=== PATIENT | female | born 2000 | race Caucasian/White ===

== ENCOUNTER 2021-08-04 12:20 | Emergency (ER) | payer OTHER, SELFPAY ==
[2021-08-04 12:53] VITALS: BP 143/92; PULSE 94; RESP 14; TEMP 37; O2SAT 99; BMI 33.6
--- NOTE | 2021-08-04 14:05 | HMH.EDUTC ---
[facility] [place] Clinical Impression: Dog bite of left hand Qualifiers: Encounter type: initial encounter Qualified Code(s): S61.452A - Open bite of left hand, initial encounter Disposition: Home, Self-Care Condition on Discharge: Good Instructions: DI for Dog Bite Additional Instructions: Keep the wounds clean and dry. Follow up with your regular doctor. Take the antibiotics as directed and apply the topical antibiotics as directed. Make sure you stay in contact with the health department regarding the health of the dog. Watch the wounds for signs of worsening infection, such as worsening redness, drainage, swelling, etc. GO TO THE ER FOR ANY WORSENING SYMPTOMS Prescriptions: Amoxicillin [Amoxicillin 875MG Tab] 875 mg PO Q12H #20 tab Transmission Status: Received by [facility] #[id number] Mupirocin [Bactroban 2% Ointment 22gm tube] 1 applicatio TP TID 7 Days #1 gm Transmission Status: Received by [id number] Referrals: Pritesh Mccollum [Primary Care Provider] - Time of Disposition: 14:11 Medical Decision Making - Medical Records Medical records reviewed: No: I reviewed the patient's medical records. - Jose L Inquiry Pt receiving controlled substance: No Vital Signs: 08/04/21 12:53 08/04/21 14:15 Temperature 98.6 F 98.6 F Temperature Source Oral Pulse Rate 94 H Pulse Rate [Left] 94 H Respiratory Rate 14 14 Blood Pressure 143/92 H Blood Pressure [Right Arm] 143/92 H Blood Pressure Mean [Right Arm] 109 02 Sat by Pulse Oximetry 99 [facility] [place] - General Stated complaint: dog bite on middle finger 0106 Time Seen by Provider: 08/04/21 12:55 Mode of Arrival: Ambulatory Source of Information: Patient Limitations: No Limitations Description of Symptoms (Recalled from Triage Doc. by RN): pt was bitten by a pug while at work. pt presents with a small scratch to her L middle digit on her hand. no puncture wounds present. 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 She has 2 superficial linear abrasions present on that finger. She denies any other injury. Her tetanus immunization is up to date. - Related Data Previous Rx's Medication Instructions Recorded Amoxicillin [Amoxicillin 875MG 875 mg PO Q12H #20 tab 08/04/21 Tab] Mupirocin [Bactroban 2% Ointment 1 applicatio TP TID 7 Days #1 gm 08/04/21 22gm tube] Allergies Allergy/AdvReac Type Severity Reaction Status Date / Time No Known Allergies Allergy Verified 08/04/21 12:57 - Worker's Comp Is this a Worker's Comp case?: Yes Is this an H Worker's Comp?: No Is this a [place] Worker's Comp?: No [facility] History - Hepatitis A Screen Drug use history?: No High risk sexual behaviors?: No History of sexually transmitted infection?: No Currently employed?: No Childcare worker?: No Do you have indoor plumbing?: Yes Do you have electricity?: Yes Attestation statement:: This patient has been screened for Hepatitis A risk factors. I have reviewed the patient's past medical history: Yes ROS Obtained: Yes All systems reviewed & no additional complaints - Constitutional Constitutional: Denies chills, Denies fever(s) - Integumentary/Breasts Skin/Breast: Reports as per HPI - Neurologic Neurologic: Denies tingling/numbness/burning sensations Physical Exam - General General appearance: alert, in no apparent distress - Head Head exam: atraumatic, normocephalic, normal inspection - Eye Eye exam: Present: normal appearance, PERRL, EOMI - ENT ENT exam: Present: normal exam, normal oropharynx, mucous membranes
[2021-08-04 14:15] VITALS: BP 143/92; PULSE 94; RESP 14; TEMP 37
== END 2021-08-04 14:21 | disposition home or self-care (01) ==
PROVIDERS: Emergency Provider Nurse Practitioner Family; PCP Family Medicine
DX: S61.452A Open bite of left hand, initial encounter (principal); W54.0XXA Bitten by dog, initial encounter
CPT/HCPCS: 99202; G0463

== ENCOUNTER 2021-08-18 19:27 | Emergency (ER) | payer OTHER, SELFPAY ==
[2021-08-18 19:29] VITALS: BP 165/97; PULSE 115; RESP 20; TEMP 36.4; O2SAT 100; BMI 33.6
--- NOTE | 2021-08-18 19:45 | XR_ITS ---
PROCEDURE INFORMATION: Exam: XR Right Hand Exam date and time: 08/18/2021 7:45 PM Age: 21 years old Clinical indication: Injury or trauma; Other: Embroindery machine needle; Blunt trauma (contusions or hematomas) and puncture; Right; Index finger; Patient HX: Embroidery machine needle broke in patient's finger. ; Additional info: Needle lodged. TECHNIQUE: Imaging protocol: XR Right hand. Views: 3 or more views. COMPARISON: No relevant prior studies available. FINDINGS: Bones/joints: 1 x 7 mm cylindrical pointed hypodensity along the radial and distal aspect of the distal phalanx of the 2nd ray. Additional tiny crescentic radiodensity just proximal. No acute fracture or dislocation. Soft tissues: Normal. IMPRESSION: Findings compatible with foreign body described above.
--- NOTE | 2021-08-18 20:07 | HMH.EDSKAF ---
ED Disposition Clinical Impression: Foreign body of finger Disposition: Home, Self-Care Condition on Discharge: Good Instructions: DI for Removal of Foreign Body From Skin Additional Instructions: keep clean and use advil/tyenol and use meds Prescriptions: cephALEXin [cephALEXin 500mg capsule*] 500 mg PO TID #30 cap Transmission Status: Pending to [facility]/pharmacy #[id number] Referrals: Pritesh Mccollum [Primary Care Provider] - - Critical Care Critical Care Time: No Attestation: On 08/18/21, the high probability of a clinically significant, sudden or life threatening deterioration of the following system(s) required my full and direct attention, intervention and personal management. The time I documented below is in addition to time spent performing reported procedures but includes the following listed in this critical care notation. Medical Decision Making - Medical Records Medical records reviewed: Yes: I reviewed the patient's medical records. - Jose L Inquiry Pt receiving controlled substance: No Vital Signs: 08/18/21 19:29 Temperature 97.6 F Temperature Source Oral Pulse Rate [Apical] 115 H Respiratory Rate 20 Blood Pressure [Right Arm] 165/97 H Blood Pressure Mean [Right Arm] 119 Blood Pressure Source [Right Arm] Automatic Cuff Blood Pressure Position [Right Arm] Sitting 02 Sat by Pulse Oximetry 100 Oxygen Delivery Method Room Air - Lab Data Lab results reviewed: Yes: I reviewed the patient's lab results. - Radiology Data #1 Image(s): Hand Image Reviewed: Yes I have reviewed radiologist's interpretation Preliminary Findings: Abnormal #2 Image(s): Hand Image Reviewed: Yes I have reviewed radiologist's interpretation Preliminary Findings: Abnormal (small matilda remains ) Medical Decision Narrative: removed fb and repeat xray showed small matilda Skin/Abscess/FB HPI - General Chief complaint: Extremity Injury, Upper Stated complaint: sewing machine needle in R index finger Time Seen by Provider: 08/18/21 20:00 Mode of Arrival: Ambulatory Source of Information: Patient, Medical Record Limitations: No Limitations Description of Symptoms (Recalled from ER Triage Doc. by RN): Patient states that roughly 30 minutes ago she was embroidering with her sewing machine when a needle penetrated her right index finger and broke off within her finger. Patient is able to feel the needle inside of her finger but cannot feel it outside of her finger to be able to remove it. - History of Present Illness HPI narrative: sewing needle broke off distal rt 2nd finger tip amna BULLARD complaint: foreign body Onset (ago): hour(s) Tetanus up to date: yes Location: R hand Severity: moderate Associated symptoms: denies other symptoms Treatments prior to arrival: none - Related Data Previous Rx's Medication Instructions Recorded Amoxicillin [Amoxicillin 875MG 875 mg PO Q12H #20 tab 08/04/21 Tab] Mupirocin [Bactroban 2% Ointment 1 applicatio TP TID 7 Days #1 gm 08/04/21 22gm tube] cephALEXin [cephALEXin 500mg 500 mg PO TID #30 cap 08/18/21 capsule*] Allergies Allergy/AdvReac Type Severity Reaction Status Date / Time No Known Allergies Allergy Verified 08/04/21 12:57 [facility] History - Hepatitis A Screen Drug use history?: No High risk sexual behaviors?: No History of sexually transmitted infection?: No Currently employed?: No Childcare worker?: No Do you have indoor plumbing?: Yes Do you have electricity?: Yes Attestation statement:: This patient has been screened for Hepatitis A risk factors. I have reviewed the patient's past medical history: Yes ROS Obtained: Yes All systems reviewed & no additional complaints - Constitutional Constitutional: Denies fever(s) - Eyes Eyes: Denies change in vision - ENT Ears, Nose, Mouth, and Throat: Denies sore throat - Cardiovascular Cardiovascular: Denies chest pain - Respiratory Respiratory: Denies shortness of br
--- NOTE | 2021-08-18 20:31 | XR_ITS ---
PROCEDURE INFORMATION: Exam: XR Right Hand Exam date and time: 08/18/2021 8:31 PM Age: 21 years old Clinical indication: Screening exam; Post fb removal; Additional info: Post foreign body removal TECHNIQUE: Imaging protocol: XR Right hand. Views: 1 or 2 views. COMPARISON: CR XR HAND RT MIN 3V 08/18/2021 7:44 PM FINDINGS: Bones/joints: No fracture or dislocation. Soft tissues: Residual tiny curvilinear radiodensity projecting within the soft tissues near the radial aspect the distal tuft of the 2nd ray. IMPRESSION: Residual tiny curvilinear radiodensity projecting within the soft tissues near the radial aspect the distal tuft of the 2nd ray.
[2021-08-18 21:02] VITALS: BP 165/97; PULSE 89; RESP 16; TEMP 36.4; O2SAT 98
== END 2021-08-18 21:11 | disposition home or self-care (01) ==
PROVIDERS: Emergency Provider Emergency Medicine; PCP Family Medicine
DX: S61.240A Puncture wound with foreign body of right index finger without damage to nail, initial encounter (principal); W26.8XXA Contact with other sharp object(s), not elsewhere classified, initial encounter; W45.8XXA Other foreign body or object entering through skin, initial encounter; Y92.019 Unspecified place in single-family (private) house as the place of occurrence of the external cause
CPT/HCPCS: 10120; 73120; 73130; 99282

== ENCOUNTER → 2022-01-03 10:57 | Outpatient (CLI) | payer BC, SELFPAY ==
[2022-01-03 12:15] LABS: Triiodothryronine (T3) Uptake 31 % (23.5-40.5)
[2022-01-03 12:16] LABS: Free Thyroxine Index 3.5 ug/dL (5.93-13.13); T4 (Thyroxine) 11.3 ug/dl (5.53-11.0)
[2022-01-03 12:29] LABS: Thyroid Stimulating Hormone 2.13 uIU/mL (0.465-4.68)
[2022-01-04 09:01] LABS: Estradiol <5.0 pg/mL (.); LH 10.6 mIU/mL (.); Progesterone 0.2 ng/mL (.); Prolactin 6.9 ng/mL (4.8-23.3); Testosterone,Total 12 ng/dL (13-71)
== END ==
PROVIDERS: PCP Nurse Practitioner Family; Visit Provider Obstetrics & Gynecology
DX: N91.2 Amenorrhea, unspecified (principal)
CPT/HCPCS: 36415; 82670; 83001; 83002; 84144; 84146; 84403; 84436; 84443; 84479

== ENCOUNTER → 2022-01-12 10:07 | Outpatient (CLI) | payer BC, SELFPAY ==
--- NOTE | 2022-01-12 10:08 | US_ITS ---
FINAL REPORT CLINICAL HISTORY: Amenorrhea FINDINGS: Transvaginal sonographic images of the pelvis were obtained. The uterus measures 6.6 x 2.7 x 2.3 cm. The endometrium measures 4 mm, which is within normal limits. No uterine mass is identified. The right ovary measures 3.3 cm in length and left ovary measures 2.4 cm in length. Normal blood flow seen to the ovaries. Small follicles are present. There is no evidence of free fluid. IMPRESSION: No acute abnormality identified. Reviewed, Interpreted and Dictated by Darron Schwab III, MD Transcribed by Alison Stoll Authenticated and . [facility]
== END ==
PROVIDERS: PCP Nurse Practitioner Family; Visit Provider Obstetrics & Gynecology
DX: N91.2 Amenorrhea, unspecified (principal)
CPT/HCPCS: 76830

== ENCOUNTER → 2023-06-16 08:21 | Outpatient (CLI) | payer BC, SELFPAY ==
[2023-06-17 08:57] LABS: Testosterone,Total 21 ng/dL (13-71)
[2023-07-01 16:31] LABS: Anti Mullerian Hormone (AMH) <0.015
== END ==
PROVIDERS: PCP Nurse Practitioner Family; Visit Provider Obstetrics & Gynecology
DX: E28.2 Polycystic ovarian syndrome (principal); N91.2 Amenorrhea, unspecified
CPT/HCPCS: 82397; 82626; 83498; 84403

== ENCOUNTER → 2023-07-13 15:17 | Outpatient (CLI) | payer BC, SELFPAY ==
[2023-07-15 10:05] LABS: FSH 19.9 mIU/mL (.); LH 11.6 mIU/mL (.)
[2023-08-15 08:21] LABS: Cells Analyzed 20; Cells Counted 20; Cells Karyotyped 2; GTG Band Resolution Achieved 500; Specimen Type BLOOD
[2023-08-15 08:22] LABS: PDF: SCANNED IMAGE
== END ==
PROVIDERS: PCP Nurse Practitioner Family; Visit Provider Obstetrics & Gynecology
DX: E28.2 Polycystic ovarian syndrome (principal); E28.39 Other primary ovarian failure
CPT/HCPCS: 83001; 83002

== ENCOUNTER 2024-05-21 15:19 | Outpatient (CLI) | payer BC, SELFPAY ==
[2024-05-21 15:47] VITALS: BMI 39.4
[2024-05-21 16:14] LABS: Basophils # 0.1 K/mm3 (0-0.2); Basophils % 0.7 % (0.1-2.0); Eosinophils # 0.1 K/mm3 (0.0-0.4); Hematocrit 39.6 % (37.0-47.0); Hemoglobin 13.4 g/dL (12.2-16.2); Lymphocytes # 1.9 K/mm3 (0.7-4.5); Lymphocytes % 24.8 % (10-50); Mean Corpuscular HGB Conc 33.9 g/dL (31.8-35.4); Mean Corpuscular Hemoglobin 30.3 pg (27.0-31.2); Mean Corpuscular Volume 89.2 fl (81-99); Mean Platelet Volume 9.1 fl (7.4-10.4); Monocytes # 0.4 K/mm3 (0.1-1.0); Monocytes % 4.6 % (1.7-9.3); Neutrophils # 5.4 K/mm3 (1.8-7.8); Platelet Count 276 K/mm3 (142-424); Red Blood Count 4.44 M/mm3 (4.20-5.40); Red Cell Distribution Width 12.7 % (11.5-17.5); White Blood Count 7.8 K/mm3 (4.8-10.8)
[2024-05-21 16:15] LABS: Albumin Level 4.7 g/dl (3.5-5.0); Chloride 102 mmol/L (98-107); Potassium 3.5 mmoL/L (3.5-5.1); Sodium 139 mmol/L (136-145)
[2024-05-21 16:17] LABS: Blood Urea Nitrogen 11 mg/dl (7-17); Creatinine Clearance Estimated 194 mL/min (50-200); Estimated Glomerular Filt Rate 87 ml/min (>60); GFR (African American) 106 ML/MIN (>60)
[2024-05-21 16:18] LABS: Alanine Aminotransferase 20 U/L (12-78); Albumin/Globulin Ratio 1.6 (1.1-1.8); Alkaline Phosphatase 58 U/L (38-126); Anion Gap 15.5 mEq/L (5-15); Aspartate Amino Transferase 24 U/L (14-36); Bilirubin,Total 0.7 mg/dl (0.2-1.3); Calcium 9.4 mg/dl (8.4-10.2); Carbon Dioxide 25 mmol/L (22.0-30.0); Globulin 2.9 g/dL (1.3-3.2); Glucose 80 mg/dl (74-100); Total Protein,Serum 7.6 g/dl (6.3-8.2)
[2024-05-21 16:54] LABS: HCG,Quantitative < 2 mIU/ml (0-5.42)
== END 2024-05-21 23:59 | disposition home or self-care (01) ==
LOC: PREOP 15:20
PROVIDERS: PCP Nurse Practitioner Family; Visit Provider Obstetrics & Gynecology
DX: N84.0 Polyp of corpus uteri (principal)
CPT/HCPCS: 80053; 84702; 85025

== ENCOUNTER 2024-05-28 09:21 | Day surgery (SDC) | payer BC, SELFPAY ==
[2024-05-21 15:43] VITALS: BMI 39.4
[2024-05-28] VITALS (9 sets, daily range): BP systolic 125–154; BP diastolic 72–102; PULSE 70–111; RESP 14–18; TEMP 36.6–37; O2SAT 96–100
--- NOTE | 2024-05-28 10:35 | EXP.ANES.CKL ---
[facility] Disclaimer: The information contained in this section may have been updated after the patient was seen, as this information can be updated by other users. Medical History History of primary ovarian failure PCOS (polycystic ovarian syndrome) Surgical History No history of previous surgery Family History Mother Cancer, Onset Age: 55 colon apr 12, 2022 Father Hypertension Diabetes Social History (Updated 05/28/24 @ 09:41 by Trang Edmond RN) Smoking Status: Never smoker alcohol intake: never substance use type: denies use current occupational status: employed Travel in the last 8 weeks: Inside the [place] [facility] Anesthesia Checklist Patient Identification Patient Identification: Arm Band Structural Data Admitted From: Home Planned Operative Procedure/s: Hysteroscopy, D&C, Polypectomy Consent for Planned Operative Procedure(s) Verified: Yes Verified Documents: Surgical Consent and History and Physical NPO Status Verified Time NPO: 00:00 Additional verifications Anesthesia Reactions: No Hx Blood Transfusions: No Blood Transfusion Reaction: No Airway Assessment Mallampati Score:: Class II C-Spine Mobility Assessed: Yes TMJ Mobility Assessed: Yes Dentition: Good Dentition Neurological Assessment Level of Consciousness: Awake, Alert and Appropriate Anesthesia Plan Anesthesia Risk discussed: Yes Anesthesia Plan: Verified ASA Class: II Anesthesia Type: General
--- NOTE | 2024-05-28 12:37 | P.PNANES_ITS ---
[facility] Anesthesia Record Part I Anesthesia Record I Intake, IV Amount: 700 Hydration: Adequate Estimated blood loss (mL): 10 Urine output (mL): 0 Blood Products used (#): none Blood Pressure: 135/97 SaO2: 98 Pulse Rate: 96 Airway Patency: Patent Respiratory Rate: 16 Temperature: 98.6 F Patient is:: Drowsy and Stable Stable to PACU at:: 12:35
--- NOTE | 2024-05-28 13:22 | EXP.OP.NOTE ---
Date of procedure: 05/28/24 Pre-op Diagnosis:: 1. Endometrial polyp 2. Primary ovarian failure 3. Infertility Post-op Diagnosis:: 1. Endometrial polyp 2. Primary ovarian failure 3. Infertility Procedure performed:: Hysteroscopy, dilation, and MyoSure polypectomy Surgeon:: Stacey Slaughter DO CLOTH MERCERIZER OPERATOR:: Ron Berkowitz Anesthesia: GETA Estimated blood loss (mL): 5 Clinical Note:: Mara Skaggs is a 24yo G0 who presented to me for secondary amenorrhea and was subsequently diagnosed with primary ovarian insufficiency. She has been evaluated by JAUN. She is currently seeing JAUN and starting the process to undergo IVF. On SIS and endometrial polyp was noted and the patient was sent back to me for polypectomy. Risk benefits alternatives were discussed with the patient in detail and she desired to proceed with polypectomy. Operative findings:: Findings: -EUA revealed an 6-week anteverted uterus with regular contour. Narrowed vaginal introidus. no significant prolapse or support defects noted. Very small nulliparous appearing cervix -Hysteroscopy revealed overall smooth endometrium with 1 small possible polyp noted on the anterior wall near the cornua. Operative note:: The patient was taken back to the OR where general anesthesia was obtained.? She was placed in the dorsal lithotomy position using candycane stirrups and sterilely prepped and draped in the usual fashion.?An in and out catheter was used to drain her bladder.? A timeout was performed.? A weighted speculum would not fit in the patients narrowed introidus and a right angle retractor and small dora were used to visualize this cervix, a single-tooth tenaculum was applied to the anterior lip of the cervix and the os was dilated to accomodate the myosure scope. Device set up, primed and zeroed. The hysterscope was inserted to the fundus. Images were obtained. Myosure was used to remove the small polyp described above. Total fluid deficit was approximately 150 mLs. Total MyoSure cutting time was less than 1 minute. Following removal of polyp the MyoSure hysteroscope was removed.? The single-tooth tenaculum was removed and hemostasis was noted at the tenaculum sites.? All instruments were removed from the vagina.? All counts were correct, per nursing.?This concluded the procedure, the patient was awakened from anesthesia, and transferred to the PACU in stable condition. Condition: stable Disposition: PACU Specimens:: Endometrial polyp Complications:: None
--- NOTE | 2024-05-29 08:38 | EXP.ANES.II ---
[facility] Anesthesia Record Part II Anesthesia Record Part II Discharge Time: 13:05 Destination: Surgical Day Care (OP Surgery) PACU nurse assessment reviewed?: Yes Patient Condition:: Good Anesthesia Complications:: None Swallowing reflex intact?: Yes Airway Patency: Patent Cyanosis?: No Blood Pressure: 136/93 SaO2: 98 Respiratory Rate: 18 Pulse Rate: 97 Temperature: 98.6 F Mental Status: Alert & Oriented Pain level:: 0 Nausea and/or vomitting:: None Intake, IV Amount: 0 Hydration: Adequate
[2024-05-29 08:39] VITALS: BP 136/93; PULSE 97; RESP 18; TEMP 37; O2SAT 98
--- NOTE | 2024-05-29 08:40 | EXP.ANES.II ---
[facility] Anesthesia Record Part II Anesthesia Record Part II Destination: Surgical Day Care (OP Surgery) PACU nurse assessment reviewed?: Yes Patient Condition:: Good Anesthesia Complications:: None Swallowing reflex intact?: Yes Airway Patency: Patent Cyanosis?: No Mental Status: Alert & Oriented Intake, IV Amount: 0 Hydration: Adequate
== END 2024-05-28 13:40 | disposition home or self-care (01) ==
PROVIDERS: PCP Nurse Practitioner Family; Visit Provider Obstetrics & Gynecology
PROC: 0UB98ZZ Excision of Uterus, Via Natural or Artificial Opening Endoscopic (ICD-10-PCS; CPT 58558; principal; 2024-05-28 11:00)
DX: N84.0 Polyp of corpus uteri (principal); E28.39 Other primary ovarian failure; N97.9 Female infertility, unspecified
CPT/HCPCS: 58558; J1100; J1885; J2250; J2405; J3010

== ENCOUNTER 2024-12-16 16:29 | Outpatient (CLI) | payer BC, SELFPAY ==
[2024-12-18 06:13] LABS: Neisseria gonorrhoeae, NAA Negative (Negative)
== END 2024-12-16 23:59 | disposition home or self-care (01) ==
LOC: LAB.DROPOF 16:30
PROVIDERS: PCP Obstetrics & Gynecology; Visit Provider Obstetrics & Gynecology
DX: Z3A.11 11 weeks gestation of pregnancy (principal)
CPT/HCPCS: 87491; 87591

== ENCOUNTER 2025-01-13 10:54 | Outpatient (CLI) | payer BC, SELFPAY ==
--- OUTSIDE RECORDS SUMMARY | 2025-01-13 11:05 | XMS_ITS | Clinical Summary ---
Author Organization [facility] Address [address], [place] [address] Phone Care Team Providers Care Sales Order Processor Name Role Phone Lisa Garner MD Primary Care Provider [phone] Allergies No known active allergies Medications medroxyPROGESTER one (PROVERA) 10 mg Oral Tablet Take 10 mg by mouth daily. Active estradioL (VIVELLE) 0.1 mg/24 hr TD Patch Semiweekly Place 1 Patch onto the skin two times a week. 09/17/2023 Active PNV,calcium 16-ffud-ujcmt acid 27 mg iron- 1 mg Oral Tablet Take 1 Tablet by mouth daily. 09/17/2023 Active promethazine-dex tromethorphan (PROMETHAZINE-DM ) 6.25-15 mg/5 mL Oral SyrupIndications :Viral URI Take 5 mL by mouth every 6 hours as needed. 473 mL 09/12/2024 Active Active Problems Problem Noted Date Diagnosed Date Folliculitis 06/08/2017 Immunizations Immunization Administration Dates Next Due DTaP 04/14/2003, 1,1999,08/29,1999 Hepatitis A, Adult 02/04/2018 Hepatitis B, Adult 03/07/2018 Hepatitis B, Ped/Adol 09/27/2018,04/09/2018 Hepatitis B, Unspecified Formulation 08/06/2000, 1999,1999 HiB, Unspecified Formulation 08/06/2000,08/29/19 00,1999 IPV 04/14/2003, 0,1999,06/24 Influenza, Split (Incl. Robert fied Surface Antigen) 05/18/2020,05/18/2020,05/06/2019 MMR 04/14/2003,08/06/2000 Meningococcal Conjugate 04/19/2010 Tdap 04/19/2010 Varicella 05/07/2000 Family History Medical History Relation Name Comments Heart Disease Father Cancer Maternal Grandmother Diabetes Maternal Grandmother Arthritis Mother Relation Name Status Comments Father Maternal Grandmother Mother Social History Tobacco Use Types Packs/Day Years Used Date Smoking Tobacco: Never Smokeless Tobacco: Never Tobacco Cessation:Counseling Given: Not Answered Alcohol Use Standard Drinks/Week Comments No 0 (1 standard drink = 0.6 oz pur e alcohol) PHQ-2 Answer Date Recorded PHQ-2 Total Score 0 09/12/2024 Sexually Active Control Partners Comments Never Comments No Sex and Gender Information Value Date Recorded Sex Assigned at Not on file Legal Sex Female 4:30 AM EDT Gender Identity Not on file Sexual Orientation Not on file 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 Not on file Not on file Not on isaiah e Obstetrics History Last Filed Vital Signs Vital Sign Reading Time Taken Comments Blood Pressure 118/84 09/12/2024 2:35 PM EST Pulse 111 09/12/2024 2:35 PM EST Temperature 36.6 C (97.9 F) 09/12/2024 2:35 PM EST Respiratory Rate - - Oxygen Saturation 98% 09/12/2024 2:35 PM EST Inhaled Oxygen Concentration - - Weight 115.2 kg (254 lb) 09/12/2024 2:35 PM EST Height 170.2 cm (5' 7 ) 09/12/2024 2:35 PM EST Body Mass Index 39.78 09/12/2024 2:35 PM EST Plan of Treatment Health Maintenance Due Date Last Done Comments HPV (1 - 3-dose series) 2014 Annual Wellness Exam 01/31/2019 01/31/2018 Cervical Cancer Screening 2020 Pap Smear 2020 DTaP/TDaP/Td (7 - Td or Tdap) 04/19/2020 04/19/2010, 04/14/2003, 11/05/2000, Additional history exists COVID-19 Vaccine ( season) 2024 Influenza Vaccine (Season Ended) 2025 05/18/2020, 05/18/2020, 05/06/2019, Additional history exists Hepatitis B Vaccine Completed 09/27/2018, 04/09/2018, 03/07/2018, Additional history exists Meningococcal B Vaccine Aged Out No l onger eligible based on patient's age to complete this topic Pneumococcal Vaccine 0-49 Aged Out No longer eligible based on patient's age to complete this topic Goals Goal Patient Goal Type Associated Problems Recent Progress Patient-Stated? Author Maintain a healthy diet, exercise regularly and maintain an ideal body weight General No Trang Burr, A Insurance [facility] PPO Care Teams Sales Order Processor Relationship Specialty Start Date End Date Lisa Garner MD [address] [place] [address] PCP - General Family Medicine 09/12/24
--- OUTSIDE RECORDS SUMMARY | 2025-01-13 11:05 | XMS_ITS | Clinical Summary ---
Author Organization [facility] Address [address] [place] [id number] Care Team Providers Care Pastry Wrapper Name Role Phone Pcp, No Primary Care Provider [phone] Source Comments This information has been disclosed to you from confidential records protectedfrom disclosure by state law. You shall make no further disclosure of thisinformation without the specific, written, and informed release of theindividual to whom it pertains, or as otherwise permitted by law. A generalauthorization for the release of medical or other information is not sufficientfor the purposes of therelease of HIV test results or diagnoses. [id number] Allergies No known active allergies Medications PNV,calcium 01-oteu-zzerp acid ( PLUS) 27 mg iron- 1 mg Tab tablet Take 1 tablet by mouth daily. 90 tablet 3 09/17/2023 Active estradioL (VIVELLE-DOT) 0.1 mg/[address] 1 patch onto the skin every Sunday and . 24 patch 3 09/17/2023 Active Family History Medical History Relation Comments Diabetes Father Hypertension Father Cancer Mother Lung, colon; Dec 2021, genetic testing neg Colon Cancer Mother Stroke Mother Cancer Paternal Grandmother lung Relation Status Comments Father Mother Paternal Grandmother Social History Tobacco Use Types Packs/Day Years Used Date Smoking Tobacco: Never Smokeless Tobacco: Never Alcohol Use Standard Drinks/Week Comments Never 0 (1 standard drink = 0.6 oz pur e alcohol) Comments No Sex and Gender Information Value Date Recorded Sex Assigned at Female 09/16/2023 6:58 PM EST Legal Sex Female 1:26 PM EST Gender Identity Female 09/16/2023 6:58 PM EST Sexual Orientation Straight 09/16/2023 6: 58 PM EST Last Filed Vital Signs Vital Sign Reading Time Taken Comments Blood Pressure 117/78 09/17/2023 9:51 AM EST Pulse - - Temperature - - Respiratory Rate - - Oxygen Saturation - - Inhaled Oxygen Concentration - - Weight 117.9 kg (260 lb) 09/17/2023 9:51 AM EST Height 170.2 cm (5' 7 ) 09/17/2023 9:51 AM EST Body Mass Index 40.72 09/17/2023 9:51 AM EST Plan of Treatment Health Maintenance Due Date Last Done Comments Abnormal Colonoscopy Follow Up 1999 Hepatitis C Screening (MyChart) 1999 Immunization: HPV (1 - 3-dose series) 2014 Alcohol Misuse Screening 2017 Depression Screening 2017 HIV Screening 2017 Cervical Cancer Screening/Pap Smear (MyChart) 2020 Immunization: DTaP/Tdap/Td (7 - Td or Tdap) 04/19/2020 04/19/2010, 04/14/2003, 11/05/2000, Additional history exists Immunization: COVID-19 ( season) 2024 Diabetes Screening 09/17/2024 09/17/2023 Immunization: Influenza (MyChart) (Season Ended) 2025 05/21/2023 Colorectal Cancer Screening (MyChart) 2039 Immunization: Meningococcal ACWY Aged Out 04/19/2010 No longer eligible based on patient's age to complete this topic Immunization: Hepatitis B Completed 2018, 04/09/2018, 03/07/2018, Additional history exists Immunization: Pneumococcal Aged Out N o longer eligible based on patient's age to complete this topic Procedures Procedure Name Priority Date/Time Associated Diagnosis Comments HEMOGLOBIN A1C Routine 09/17/2023 10:47 AM EST from Last 3 Months or Most Recently Relevant to Health Maintenance Results * Hemoglobin A1c (09/17/2023 10:47 AM EST) Hemoglobin A1C 5.4 4.8 - 5.6 % [facility] 1 Comment: Prediabetes: 5.7 - 6.4 Diabetes: >6.4 Glycemic control for adults with diabetes: <7.0 09/17/2023 10:4 7 AM EST 09/17/2023 Narrative [facility] - 09/18/2023 12:06 AM EST Performed at: 01 - [facility] [address] [id number] Printing Roller Handler: Mainor Newton PhD, Phone: [phone] us Irish Parsons MD LAB BLOOD ORDERABLES Final R esult [facility] 1 from Last 3 Months or Most Recently Relevant to Health Maintenance Insurance BL[employer] Care Teams Pastry Wrapper Relationship Specialty Start Date End Date Pcp, No No Address PCP - General 09/17/23
[2025-01-13 11:20] LABS: Basophils % 0.3 % (0.1-2.0); Eosinophils # 0.1 Kmm3 (0.0-0.4); Eosinophils % 0.8 % (0.1-12.0); Hematocrit 38.2 % (37.0-47.0); Hemoglobin 12.5 g/dL (12.2-16.2); Immature Granulocytes # 0.05 10^3uL; Immature Granulocytes % 0.5 %; Lymphocytes # 1.6 K/mm3 (0.7-4.5); Lymphocytes % 15.6 % (10-50); Mean Corpuscular HGB Conc 32.7 g/dL (31.8-35.4); Mean Corpuscular Volume 91.6 fl (81-99); Mean Platelet Volume 11.7 fl (7.4-10.4); Monocytes # 0.4 K/mm3 (0.1-1.0); Monocytes % 4.3 % (1.7-9.3); Neutrophils % 78.5 % (37.0-80.0); Nucleated Red Blood Cells # 0 10^3/uL; Nucleated Red Blood Cells % 0 %; Platelet Count 224 K/mm3 (142-424); Red Blood Count 4.17 M/mm3 (4.20-5.40); Red Cell Distribution Width 12.1 % (11.5-17.5); Red Cell Distribution Width-SD 40.2 fL; White Blood Count 10.2 K/mm3 (4.8-10.8)
[2025-01-13 11:50] LABS: Alanine Aminotransferase 14 U/L (12-78); Albumin Level 3.8 g/dl (3.5-5.0); Albumin/Globulin Ratio 1.5 (1.1-1.8); Alkaline Phosphatase 57 U/L (38-126); Aspartate Amino Transferase 20 U/L (14-36); Bilirubin,Total 0.6 mg/dl (0.2-1.3); Blood Urea Nitrogen 5 mg/dl (7-17); Calcium 9.9 mg/dl (8.4-10.2); Carbon Dioxide 24 mmol/L (22.0-30.0); Chloride 106 mmol/L (98-107); Estimated Glomerular Filt Rate 150 ml/min (>60); GFR (African American) 182 ML/MIN (>60); Globulin 2.5 g/dL (1.3-3.2); Glucose 94 mg/dl (74-100); Sodium 133 mmol/L (136-145); Total Protein,Serum 6.3 g/dl (6.3-8.2); Uric Acid 3.4 mg/dl (2.5-6.2)
[2025-01-13 12:30] LABS: HIV Combo NEGATIVE (Negative)
[2025-01-13 12:38] LABS: Hepatitis C Ab Qual. W/ RFX NEGATIVE (Negative)
[2025-01-14 09:43] LABS: Rubella Antibodies, IgG 1.37 index (Immune >0.99); Varicella Zoster IgG Reactive (Non Reactive)
[2025-01-14 09:58] LABS: RPR W/RFX Titers Nonreactive (Nonreactive)
[2025-01-14 10:11] LABS: Hepatitis B Surface Antigen Negative (Negative)
== END 2025-01-13 23:59 | disposition home or self-care (01) ==
LOC: LAB 10:55
PROVIDERS: PCP Family Medicine; Visit Provider Obstetrics & Gynecology
DX: O10.911 Unspecified pre-existing hypertension complicating pregnancy, first trimester (principal); Z3A.11 11 weeks gestation of pregnancy
CPT/HCPCS: 36415; 80053; 84550; 85025; 86592; 86762; 86787; 86803; 86850; 87340; 87389

== ENCOUNTER 2025-01-15 08:46 | Outpatient (CLI) | payer BC, SELFPAY ==
--- OUTSIDE RECORDS SUMMARY | 2025-01-15 08:50 | XMS_ITS | Clinical Summary ---
Author Organization [facility] Address [address] [place] [id number] Care Team Providers Care Skiver Sock Linings Name Role Phone Pcp, No Primary Care [...] therelease of HIV test results or diagnoses. [id number] Allergies No known active allergies Medications PNV,calcium 49-eeei-ilfsv acid ( PLUS) 27 mg iron- 1 [...] AM EST Performed at: 01 - [facility] [address] [id number] Stagecraft Teacher: Mainor Newton PhD, Phone: [phone] us Irish Parsons MD LAB BLOOD ORDERABLES Final R esult [facility] 1 from Last 3 Months or Most Recently Relevant to Health Maintenance Insurance [employer] Care Teams Skiver Sock Linings Relationship Specialty Start Date End Date Pcp, No No Address PCP - General 09/17/23
--- OUTSIDE RECORDS SUMMARY | 2025-01-15 08:50 | XMS_ITS | Clinical Summary ---
Author Organization [facility] Address [address] [facility] [place] [address] Phone Care Team Providers Care Transition Advisor Name Role Phone Lisa Garner MD Primary Care Provider +1- [phone] Allergies No known active allergies Medications medroxyPROGESTER one (PROVERA) 10 mg Oral Tablet Take 10 mg by mouth daily. Active estradioL (VIVELLE) 0.1 mg/24 [address] TD Patch Semiweekly Place 1 Patch onto the skin two times a week. 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
[2025-01-15 15:58] LABS: Total Volume,Urine 850 mL (600-1600)
[2025-01-15 16:08] LABS: Total Protein 24 Hour,Urine 43 mg/24 hr (40-90); Total Protein,Urine Random < 5.0 mg/dL (0.0-12.0)
== END 2025-01-15 23:59 | disposition home or self-care (01) ==
LOC: LAB 08:47
PROVIDERS: PCP Family Medicine; Visit Provider Obstetrics & Gynecology
DX: O13.9 Gestational [pregnancy-induced] hypertension without significant proteinuria, unspecified trimester (principal); Z3A.00 Weeks of gestation of pregnancy not specified
CPT/HCPCS: 84155

== ENCOUNTER 2025-04-08 10:37 | Outpatient (CLI) | payer BC, SELFPAY ==
--- OUTSIDE RECORDS SUMMARY | 2025-02-09 13:03 | XMS_ITS | Encounter Summary ---
Author Organization [facility] Address [address] [place] [id number] Care Team Providers Care Office Rn Name Role Phone Lisa Garner MD Primary Care Provider [phone]- [phone] Reason for Referral * Diagnostic Imaging (Routine) - Closed Specialty Diagnoses / Procedures Referred By Pablo avila Referred To Contact Radiology Diagnoses Conceived by in vitro fertilization HTN in , chronic Obesity in , antepartum , unspecified gestational age Procedures [facility] Xiomy Slaughter DO [address] [place] [address] [place] [address] Phone: tel: fax: [facility] DI[facility] [address] [place] [address] Phone: tel: Referral ID Status Reason Start Date Expiration Date Visits Re quested Visits Authorized [id number] Closed 01/14/2025 04/15/2026 1 1 Reason for Visit * Diagnostic Imaging (Routine) - Closed Specialty Diagnoses / Procedures Referred By Pablo avila Referred To Contact Radiology Diagnoses Conceived by in vitro fertilization HTN in , chronic Obesity in , antepartum , unspecified gestational age Procedures [facility] [place] Xiomy Slaughter DO [address] [place] [address] [place] [id number] Phone: tel: fax: [facility] [address] [place] [address] Phone: tel: Referral ID Status Reason Start Date Expiration Date Visits Re quested Visits Authorized [id number] Closed 01/14/2025 04/15/2026 1 1 Encounter Details Date Type Department Care Team (Latest Contact Info) Description 02/09/2025 1:03 PM EDT - 02/09/2025 11:59 PM EDT Hospital Encounter [facility] [address] [place] [address] Xiomy Slaughter, [address] [facility] [address] [place] [address] Conceived by in vitro fertilization; HTN in , chronic; Obesity in , antepartum; , unspecified gestational age Discharge Disposition: Home or Self Care Social History Tobacco Use Types Packs/Day Years Used Date Smoking Tobacco: Never Smokeless Tobacco: Never Alcohol Use Standard Drinks/Week Comments Never 0 (1 standard drink = 0.6 oz pur e alcohol) Estimated Date of Delivery Comme nts Yes 06/29/2025 Date entered shilpi or to episode creation Sex and Gender Information Value Date Recorded Sex Assigned at Not on file Legal Sex Female 10:49 AM EDT Gender Identity Not on file Sexual Orientation Not on file documented as of this encounter Medications at Time of Discharge aspirin 81 MG EC tablet Take 1 tablet by mouth 2 (Two) Times a Day. MV & Min w/FA-DHA ( GUMMIES PO) Take 2 tablets by mouth Daily. documented as of this encounter Plan of Treatment Upcoming Encounters Date Type Department Care Team (Late st Contact Info) Description 04/20/2025 10:00 AM EDT Appointment [facility] DELIVERY PROCEDURES [address] [place] [address] documented as of this encounter Procedures Procedure Name Priority Date/Time Associated Diagnosis Comments [facility] Routine 02/09/2025 1:52 PM EDT Conceived by in vitro fertilization HTN in , chronic Obesity in , antepartum , unspecified gestational age documented in this encounter Results * [facility] (02/09/2025 1:52 PM EDT) Anatomical Region Laterality Modality Ultrasound 02/09/2025 1:30 PM EDT Narrative 02/09/2025 3:20 PM EDT PAT NAME: JES WALL MED REC#: [id number] DA: [id number] PAT GEND: F PAT TYPE: O EXAM PALLAVI: [id number] REF PHYS XIOMY SLAUGHTER Comparison Studies There are no relevant prior studies to which this study is being compared Patient Status Outpatient Indication ======== IVF (donor egg). CHTN. Morbid obesity BMI 42. Maternal Assessment Height 167 cm Height (ft) 5 ft Height (in) 6 in Weight 118 kg Weight (lb) 260 lb BMI 42.29 kg/m Method ======= Transabdominal ultrasound examination. View: Suboptimal view: limited by maternal body habitus ========= Jacome . Number of fetuses: 1 Dating ====== Method of dating: based on stated JACKIE GA by prior assessment 20 w + 0 d JACKIE by prior assessment: 06/29/2025 Ultrasound examination on: 02/09/2025 GA by U/S based upon: AC, BPD, Femur, HC GA by U/S 20 w + 2 d JACKIE by U/S: 06/27/2025 Assigned: based on stated JACKIE, selected on 02/09/2025 Assigned GA 20 w + 0 d Assigned JACKIE: 06/29/2025 length 280 d Biometry Standard BPD 48.3 mm 20w 4d 75% Hadlock OFD 62.9 mm 21w 3d 92% Dylon HC 180.7 mm 20w 3d 65% Hadlock Cerebellum tr 22.5 mm 21w 0d 95% Hill Nuchal fold 3.9 mm AC 140.6 mm 19w 3d 26% Hadlock Femur 33.4 mm 20w 3d 59% Hadlock Humerus 30.6 mm 20w 1d 60% Dylon HC / AC 1.29 99% Hadlock EFW 326 g 19w 6d 45% Hadlock EFW (lb) 0 lb EFW (oz) 11 oz EFW by: Hadlock ([id number]) Extended Tibia 28.1 mm 20w 1d 64% Dylon Fibula 28.4 mm 20w 1d 53% Dylon Radius 25.1 mm 19w 3d 40% Dylon Ulna 27.3 mm 20w 0d 39% Dylon Cav. septi pel. tr 4.0 mm Pmp 6.8 mm CM 2.8 mm 2% Nicolaides Nasal bone 6.2 mm Head / Face / Neck Cephalic index 0.77 28% Nicolaides Extremities / Bony Struc FL / BPD 0.69 42% Hadlock FL / HC 0.18 26% Hadlock FL / AC 0.24 94% Hadlock Other Structures FHR 143 bpm General Evaluation Cardiac activity present. FHR 143 bpm. movements present. Presentation cephalic. Placenta Placental site: posterior. Umbilical cord Cord vessels: 2 vessel cord, absence of the right umbilical artery. Insertion site: Not visible. Amniotic fluid Amount of AF: normal. MVP 5.7 cm. Anatomy Cranium: Appears normal Midline falx: Appears normal Cavum septi pellucidi: Appears normal Cerebellum: Appears normal Cisterna magna: Appears normal Head / Neck Rt lateral ventricle: Appears normal Lt lateral ventricle: Appears normal Rt choroid plexus: Appears normal Lt choroid plexus: Appears normal Vermis: Appears normal Neck: Appears normal Nuchal fold: Appears normal Lips: Appear normal Profile: Appears normal Nose: Appears normal Face Nose: Nasal bone present Palate: Appears normal Orbits: Appears normal Lens: Normal 4-chamber view: Appears normal RVOT view: suboptimal LVOT view: suboptimal Heart / Thorax 4-chamber view: outflow tracts cross by color flow Aortic arch view: suboptimal Ductal arch view: suboptimal SVC: suboptimal IVC: suboptimal 3-vessel view: suboptimal 1-xybvlc-bsdjgsx view: suboptimal Rt lung: Appears normal Lt lung: normal Diaphragm: Appears normal Diaphragm: Intact Cord insertion: Appears normal Stomach: Appears normal Bladder: Appears normal Abdomen Rt kidney: normal Lt kidney: normal Liver: normal Small bowel: normal Large bowel: normal Cervical spine: Appears normal Thoracic spine: Appears normal Lumbar spine: Appears normal Sacral spine: Appears normal Arms: Appears normal Legs: Appears normal Rt upper arm: Appears normal Rt forearm: Appears normal Rt hand: Appears normal Lt upper arm: Appears normal Lt forearm: Appears normal Lt hand: Appears normal Rt upper leg: Appears normal Rt lower leg: Appears normal Rt foot: suboptimal Lt upper leg: Appears normal Lt lower leg: Appears normal Lt foot: ABNORMAL Lt foot: clubbing Gender: female Wants to know gender: yes Maternal Structures Uterus / Cervix Cervix: Visualized Approach: Transabdominal Cervical length 42.8 mm Ovaries / Tubes / Adnexa Rt ovary: Visualized Lt ovary: Visualized Impression Jes presents for a anatomic survey. On today's exam, SIUP is noted in cephalic presentation with biometry measuring consistent with dates. There is a normal amount of amniotic fluid. Placenta is posterior. Cervical length appears adequate. Left club foot is suspected. Single umbilical artery/2VC is noted. Otherwise, limited but normal appearing anatomy is visualized. Additional heart views are needed to complete the anatomic survey. Recommendation Follow-up scheduled in 4wks for a echo. Coding ======= Description: 81669-27 Detailed Petroleum Engineering Professor: Vandana Costa RDMS Physician: Zoila Gandhi MD Electronically signed by: Zoila Gandhi MD at: 15:20 Procedure Note Zoila Gandhi MD - 02/09/2025 PAT NAME: JES WALL MED REC#: [id number] DA: 2000 PAT GEND: F PAT TYPE: O EXAM PALLAVI: [id number] REF PHYS XIOMY SLAUGHTER Comparison Studies There are no relevant prior studies to which this study is beingcompared Patient Status Outpatient Indication ======== IVF (donor egg). CHTN. Morbid obesity BMI 42. Maternal Assessment Cloeoi086 cm Height (ft)5 ft Height (in)6 in [id number] kg Weight (lb)260 lb BMI42.29 kg/m Method ======= Transabdominal ultrasound examination. View: Suboptimal view: limited bymaternal body habitus ========= Jacome . Number of fetuses: 1 Dating ====== Method of dating:based on stated JACKIE GA by prior [id number] w + 0 d JACKIE by prior assessment:06/29/2025 Ultrasound examination on:02/09/2025 GA by U/S based upon:AC, BPD, Femur, HC GA by U/S20 w + 2 d JACKIE by U/S:06/27/2025 Assigned:based on stated JACKIE, selected on 02/09/2025 Assigned GA20 w + 0 d Assigned JACKIE:06/29/2025 [id number] d Biometry Standard BPD48.3 mm 20w 4d 75% Hadlock OFD62.9 mm 21w 3d 92% Dylon HC180.7 mm 20w 3d 65% Hadlock Cerebellum tr22.5 mm 21w 0d 95% Hill Nuchal fold3.9 mm AC140.6 mm 19w 3d 26% Hadlock Femur33.4 mm 20w 3d 59% Hadlock Eajccyy86.6 mm 20w 1d 60% Dylon HC / AC1.29 99% Hadlock EEM243 g 19w 6d 45% Hadlock EFW (lb)0 lb EFW (oz)11 oz EFW by:Hadlock (AFS-AH-TF-FL) Extended Tibia28.1 mm 20w 1d 64% Dylon Boklnr11.4 mm 20w 1d 53% Dylon Knwrtz31.1 mm 19w 3d 40% Dylon Ulna27.3 mm 20w 0d 39% Dylon Cav. septi pel. tr4.0 mm Vp6.8 mm CM2.8 mm 2% Nicolaides Nasal bone6.2 mm Head / Face / Neck Cephalic index0.77 28% Nicolaides Extremities / Bony Struc FL / BPD0.69 42% Hadlock FL / HC0.18 26% Hadlock FL / AC0.24 94% Hadlock Other Structures [id number] bpm General Evaluation Cardiac activity present. FHR 143 bpm. movements present. Presentation cephalic. Placenta Placental site: posterior. Umbilical cord Cord vessels: 2 vessel cord, absence of the right umbilicalartery. Insertion site: Not visible. Amniotic fluid Amount of AF: normal. MVP 5.7 cm. Anatomy Cranium:Appears normal Midline falx:Appears normal Cavum septi pellucidi:Appears normal Cerebellum:Appears normal Cisterna magna:Appears normal Head / Neck Rt lateral ventricle:Appears normal Lt lateral ventricle:Appears normal Rt choroid plexus:Appears normal Lt choroid plexus:Appears normal Vermis:Appears normal Neck:Appears normal Nuchal fold:Appears normal Lips:Appear normal Profile:Appears normal Nose:Appears normal Face Nose:Nasal bone present Palate:Appears normal Orbits:Appears normal Lens:Normal 4-chamber view:Appears normal RVOT view:suboptimal LVOT view:suboptimal Heart / Thorax 4-chamber view:outflow tracts cross by color flow Aortic arch view:suboptimal Ductal arch view:suboptimal SVC:suboptimal IVC:suboptimal 3-vessel view:suboptimal 1-znnwjb-rugyaoj view:suboptimal Rt lung:Appears normal Lt lung:normal Diaphragm:Appears normal Diaphragm:Intact Cord insertion:Appears normal Stomach:Appears normal Bladder:Appears normal Abdomen Rt kidney:normal Lt kidney:normal Liver:normal Small bowel:normal Large bowel:normal Cervical spine:Appears normal Thoracic spine:Appears normal Lumbar spine:Appears normal Sacral spine:Appears normal Arms:Appears normal Legs:Appears normal Rt upper arm:Appears normal Rt forearm:Appears normal Rt hand:Appears normal Lt upper arm:Appears normal Lt forearm:Appears normal Lt hand:Appears normal Rt upper leg:Appears normal Rt lower leg:Appears normal Rt foot:suboptimal Lt upper leg:Appears normal Lt lower leg:Appears normal Lt foot:ABNORMAL Lt foot:clubbing Gender:female Wants to know gender:yes Maternal Structures Uterus / Cervix Cervix:Visualized Approach:Transabdominal Cervical hvknij49.8 mm Ovaries / Tubes / Adnexa Rt ovary:Visualized Lt ovary:Visualized Impression Jes presents for a anatomic survey. On today's exam, SIUP is noted in cephalic presentation with biometrymeasuring consistent with dates. There is a normal amount of amnioticfluid. Placenta is posterior. Cervical length appears adequate. Left club foot is suspected. Single umbilical artery/2VC is noted.Otherwise, limited but normal appearing anatomy is visualized. Additionalheart views are needed to complete the anatomic survey. Recommendation Follow-up scheduled in 4wks for a echo. Coding ======= Description:[id number] Detailed Petroleum Engineering Professor: Vandana Costa RDMS Physician: Zoila Gandhi MD Electronically signed by: Zoila Gandhi MD at: 15:20 us [address] DO [facility] US ORDERABLES Final Res ult documented in this encounter Visit Diagnoses Diagnosis Conceived by in vitro fertilization HTN in , chronic Obesity in , antepartum Obesity complicating , childbirth, or the puerperium, antepartum condition or complication , unspecified gestational age documented in this encounter Care Teams Office Rn Relationship Specialty Start Date End Date Lisa aGrner MD [address] [place] [address] PCP - General Family Medicine 01/14/25 documented as of this encounter
--- OUTSIDE RECORDS SUMMARY | 2025-02-09 13:30 | XMS_ITS | Encounter Summary ---
[facility] Address [address] [place] [address] Care Team Providers Care Art Handler Name Role Phone Lisa Garner MD Primary Care Provider [phone] Reason for Referral * Diagnostic Imaging (Routine) - Closed Specialty Diagnoses / Procedures Referred By Pablo avila Referred To Contact Radiology Diagnoses Clubfoot of left lower extremity Single umbilical artery affecting management of mother in ortiz , antepartum resulting from in vitro fertilization, antepartum Premature ovarian failure Class 3 severe obesity without serious comorbidity with body mass index (BMI) of 40.0 to 44.9 in adult, unspecified obesity type White coat syndrome without diagnosis of hypertension 20 weeks gestation of Procedures [facility] Zoila Gandhi MD [address] [facility] [address] [place] [address] Phone: tel: fax: [facility] [address] [place] [address] Phone: tel: Referral ID Status Reason Start Date Expiration Date Visits Re quested Visits Authorized [id number] Closed 02/09/2025 05/11/2026 1 1 Reason for Visit * Reason Comments IVF (donor egg); CHTN; MO; PCO S Encounter Details Date Type Department Care Team (Late st Contact Info) Description 02/09/2025 1:30 PM EDT Office Visit [facility] [address] [facility] [address] [place] [id number] Zoila Gandhi MD [address] [facility] [address] [place] [address] Clubfoot of left lower extremity (Primary Dx); Single umbilical artery affecting management of mother in ortiz , antepartum; resulting from in vitro fertilization, antepartum; Premature ovarian failure; Class 3 severe obesity without serious comorbidity with body mass index (BMI) of 40.0 to 44.9 in adult, unspecified obesity type; White coat syndrome without diagnosis of hypertension; 20 weeks gestation of Social History Tobacco Use Types Packs/Day Years Used Date Smoking Tobacco: Never Smokeless Tobacco: Never Tobacco Cessation:Counseling Given: Not Answered Alcohol Use Standard Drinks/Week Comments Never 0 [...] on file documented as of this encounter Last Filed Vital Signs Vital Sign Reading Time Taken Comments Blood Pressure 132/79 02/09/2025 1:25 PM EDT Pulse - - Temperature - - Respiratory Rate - - Oxygen Saturation - - Inhaled Oxygen Concentration - - Weight 118 kg (260 lb 3.2 oz) 02/09/2025 1:25 PM EDT Height 167.6 cm (5' 6 ) 02/09/2025 1:26 PM EDT Body Mass Index 42 02/09/2025 1:25 PM EDT documented in this encounter Progress Notes * Zoila Gandhi MD - 02/09/2025 3:45 PM EDTAssociated Problem(s): conceived through in vitro fertilization No pre-implantation genetic testing was done on embryo. No genetic screening was done. Anatomy survey as noted with 2 small abnormalities. Offered patient genetic screening and patient declined as it would not change her management of . - Follow-up scheduled in 4wks for completion of the anatomic survey, growth assessment, and for a echo * Zoila Gandhi MD - 02/09/2025 3:41 PM EDTAssociated Problem(s): White coat syndrome without diagnosis of hypertension Patient is currently taking ASA 81mgs 2x/day. She did a baseline 24hr urine protein that was normal. She is not on any medications for BP's. Her BP here today is 132/79. At home it is usually, 110's/70's. - Folllow-up scheduled in 4wks for growth * Zoila Gandhi MD - 02/09/2025 3:39 PM EDTAssociated Problem(s): Single umbilical artery affecting management of mother in ortiz , antepartum Single umbilical artery (SUA) is the result of atrophy or agenesis of one of the two umbilical arteries. The incidence of a single umbilical artery is 0.25 to 1% of all ortiz pregnancies and up to 4.6% of twin gestations. An isolated SUA with no other structural or chromosomal abnormalities should be distinguished from an SUA that is present with other abnormalities. The rate of associated fet al structural anomalies when a single umbilical artery was detected is reported to range from 13 to56%. The most common associated anomalies to occur are in the renal, cardiovascular, gastrointestinal and central nervous systems. If the ultrasound reveals only a single umbilical artery and no other anomalies, some studies have suggested an increased risk for intrauterine growth retardation. As such, it is reasonable in the setting of a single umbilical artery to repeat ultrasonographic evaluation at 32 weeks' gestation for a ssessment of the growth and proceed with increased testing if growth lag is detected. Should the single umbilical artery be associated with other anomalies, then consideration of echocardiogram and/or chromosomal analysis should be entertained. Clearly the staff should be informed of the single umbilical artery such that a detailed physical exam can be performed of the to rule out its association with an anomaly sequence or complex, specifically VATERcomplex, Meckel-Bora or Zellweger syndrome. Per the ACOG Committee Opinion on an outpatient surveillance from December 2020, increased testing should begin at 36 weeks 0 days gestation and continue weekly for the presence of anisolated single umbilical artery. - Follow-up scheduled in 4wks * Zoila Gandhi MD - 02/09/2025 3:37 PM EDTAssociated Problem(s): Clubfoot of left lower extremity Isolated left club foot is suspected. Normal movement and amniotic fluid are noted. Patient offered genetic screening but she declines as this would not change her management of the . - Follow-up scheduled in 4wks to complete the anatomy * Elvi Martini RN - 02/09/2025 1:30 PM EDT Patient denies any leaking of fluid, vaginal bleeding, or contractions. NIPT declined. Patient reports next follow-up appointment with Dr. Slaughter's office is 02/18. * Zoila Gandhi MD - 02/09/2025 1:30 PM EDT Images from the original note were not included. Maternal/ Medicine Consult Note Name: Jes Wall : 2000 Referring Provider: Xiomy Slaughter DO Chief Complaint IVF (donor egg); CHTN; MO; PCOS Subjective History of Present Illness: Jes Wall is a 24 y.o. 20w0d who presents today for a anatomic survey. She declined genetic screening. Pt denies LOF/VB/cramping. JACKIE: Estimated Date of Delivery: 06/29/25 ROS: As noted in HPI. Past Medical History: Diagnosis Date Chronic hypertension Ovarian failure Past Surgical History: Procedure Laterality Date D & C HYSTEROSCOPY with polypectomy OB History 1 Para 0 Term 0 0 AB 0 Living 0 SAB 0 IAB 0 Ectopic 0 Molar 0 Multiple 0 Live Births 0 Obstetric Comments #1: IVF with donor egg Objective Vital Signs BP 132/79 Ht 167.6 cm (66 ) Wt 118 kg (260 lb 3.2 oz) Estimated body mass index is 42 kg/m?? as calculated from the following: Height as of this encounter: 167.6 cm (66 ). Weight as of this encounter: 118 kg (260 lb 3.2 oz). Physical Exam Constitutional: Appearance: Normal appearance. She is obese. HENT: Head: Normocephalic and atraumatic. Cardiovascular: Rate and Rhythm: Normal rate. Pulmonary: Effort: Pulmonary effort is normal. Musculoskeletal: General: Normal range of motion. Cervical back: Normal range of motion and neck supple. Neurological: General: No focal deficit present. Mental Status: She is alert and oriented to person, place, and time. Psychiatric: Mood and Affect: Mood normal. Behavior: Behavior normal. Thought Content: Thought content normal. Judgment: Judgment normal. Ultrasound Impression: Vtx, S=D, nl FOREST, posterior placenta, nl CL, likely left club foot, 2VC, otherwise normal anatomy. Assessment and Plan Diagnoses and all orders for this visit: 1. Clubfoot of left lower extremity (Primary) Assessment & Plan: Isolated left club foot is suspected. Normal movement and amniotic fluid are noted. Patient offered genetic screening but she declines as this would not change her management of the . - Follow-up scheduled in 4wks to complete the anatomy Orders: - [facility]; Future 2. Single umbilical artery affecting management of mother in ortiz , antepartum Assessment & Plan: Single umbilical artery (SUA) is the result of atrophy or agenesis of one of the two umbilical arteries. The incidence of a single umbilical artery is 0.25 to 1% of all ortiz pregnancies and up to 4.6% of twin gestations. An isolated SUA with no other structural or chromosomal abnormalities should be distinguished from an SUA that is present with other abnormalities. The rate of associated fet al structural anomalies when a single umbilical artery was detected is reported to range from 13 to56%. The most common associated anomalies to occur are in the renal, cardiovascular, gastrointestinal and central nervous systems. If the ultrasound reveals only a single umbilical artery and no other anomalies, some studies have suggested an increased risk for intrauterine growth retardation. As such, it is reasonable in the setting of a single umbilical artery to repeat ultrasonographic evaluation at 32 weeks' gestation for a ssessment of the growth and proceed with increased testing if growth lag is detected. Should the single umbilical artery be associated with other anomalies, then consideration of echocardiogram and/or chromosomal analysis should be entertained. Clearly the staff should be informed of the single umbilical artery such that a detailed physical exam can be performed of the to rule out its association with an anomaly sequence or complex, specifically VATERcomplex, Meckel-Bora or Zellweger syndrome. Per the ACOG Committee Opinion on an outpatient surveillance from December 2020, increased testing should begin at 36 weeks 0 days gestation and continue weekly for the presence of anisolated single umbilical artery. - Follow-up scheduled in 4wks Orders: - [facility] [place]; Future 3. resulting from in vitro fertilization, antepartum Assessment & Plan: No pre-implantation genetic testing was done on embryo. No genetic screening was done. Anatomy survey as noted with 2 small abnormalities. Offered patient genetic screening and patient declined as it would not change her management of . - Follow-up scheduled in 4wks for completion of the anatomic survey, growth assessment, and for a echo Orders: - [facility]; Future 4. Premature ovarian failure - [facility] [place]; Future 5. Class 3 severe obesity without serious comorbidity with body mass index (BMI) of 40.0 to 44.9 inadult, unspecified obesity type - [facility] [place]; Future 6. White coat syndrome without diagnosis of hypertension Assessment & Plan: Patient is currently taking ASA 81mgs 2x/day. She did a baseline 24hr urine protein that was normal. She is not on any medications for BP's. Her BP here today is 132/79. At home it is usually, 110's/70's. - Folllow-up scheduled in 4wks for growth Orders: - [facility]; Future 7. 20 weeks gestation of - [facility] [place]; Future Follow Up Return in about 4 weeks (around 03/09/2025). I spent 30 minutes caring for the patient on the day of service. This included: obtaining or reviewing a separately obtained medical history, reviewing patient records, performing a medically appropriate exam and/or evaluation, counseling or educating the patient/family/caregiver, ordering medications, labs, and/or procedures and documenting such in the medical record. This does not include time spent on review and interpretation of other tests such as ultrasound or the performance of other procedures such as amniocentesis or CVS. Zoila Gandhi MD 02/09/2025 documented in this encounter Plan of Treatment Upcoming Encounters Date Type Department Care Team (Late st Contact Info) Description 04/20/2025 10:00 AM EDT Appointment [facility] [address] [place] [address] documented as of this encounter Results * [facility] (03/10/2025 11:13 AM EDT) Anatomical Region Laterality Modality Ultrasound 03/10/2025 10:0 3 AM EDT Narrative 03/10/2025 11:26 AM EDT PAT NAME: JES WALL MED REC#: [id number] DA: [id number] PAT GEND: F PAT TYPE: O EXAM PALLAVI: [id number] REF PHYS XIOMY SLAUGHTER Belt Polisher Comments TV chaperoned by Dr. Dsouza. Comparison Studies The findings of this study are compared to the prior ultrasound study dated 02/09/25. Patient Status Outpatient Indication ======== IVF (donor egg). CHTN. Morbid obesity BMI 43 Maternal Assessment Height 167 cm Height (ft) 5 ft Height (in) 6 in Weight 121 kg Weight (lb) 266 lb BMI 43.26 kg/m Method ======= Transabdominal ultrasound examination ========= Ortiz . Number of fetuses: 1 Dating ====== GA by prior assessment 24 w + 1 d JACKIE by prior assessment: 06/29/2025 Ultrasound examination on: 03/10/2025 GA by U/S based upon: AC, BPD, Femur, HC GA by U/S 24 w + 2 d JACKIE by U/S: 06/28/2025 Method of dating: Restore dating from previous exam Previous dating: based on stated JACKIE, selected on 02/09/2025 Agreed JACKIE of previous datin06/29/2025 Assigned: based on stated JACKIE, selected on 02/09/2025 Assigned GA 24 w + 1 d Assigned JACKIE: 06/29/2025 length 280 d Biometry Standard BPD 59.6 mm 24w 2d 50% Hadlock OFD 76.8 mm 25w 1d 84% Dylon HC 218.6 mm 23w 6d 23% Hadlock Cerebellum tr 25.8 mm 23w 2d 40% Hill AC 197.8 mm 24w 3d 51% Hadlock Femur 44.2 mm 24w 4d 50% Hadlock Humerus 39.6 mm 24w 1d 39% Dylon HC / AC 1.11 EFW 695 g 24w 1d 54% Hadlock EFW (lb) 1 lb EFW (oz) 8 oz EFW by: Hadlock ([id number]-[id number]-[id number]-FL) Extended Cav. septi pel. tr 4.4 mm Coil Tester 4.4 mm CM 4.9 mm 19% Nicolaides Head / Face / Neck Cephalic index 0.78 40% Nicolaides Thorax / Lungs Thoracic circ 163.4 mm 28% [place] Thoracic area 21.2 cm ThC / AC 0.83 Heart / Great Vessels Cardiac axis 39 Cardiac circ 83.1 mm Cardiac area 5.5 cm CC / ThC 0.51 CA / Reynaldo 0.26 Ao asc 3.68 mm Ao isthmus 3.7 mm 70% Óscar Ao desc 2.89 mm IVC 2.69 mm SVC 2.98 mm Extremities / Bony Struc FL / BPD 0.74 FL / HC 0.20 FL / AC 0.22 Other Structures FHR 142 bpm General Evaluation Cardiac activity present. FHR 142 bpm. movements present. Presentation cephalic. Placenta Placental site: posterior. Umbilical cord Cord vessels: 2 vessel cord. Insertion site: marginal inferiorly. Amniotic fluid Amount of AF: normal. MVP 4.1 cm. Anatomy Cranium: Normal Cavum septi pellucidi: Normal Cerebellum: Normal Cisterna magna: Normal Head / Neck Rt lateral ventricle: Normal Lt lateral ventricle: Normal Lips: Normal Profile: Normal Nose: Normal 4-chamber view: Appears normal RVOT view: Appears normal LVOT view: Appears normal Heart / Thorax Aortic arch view: Appears normal Ductal arch view: Appears normal SVC: Appears Normal IVC: Appears Normal 3-vessel view: Appears normal 5-aopfgy-rcjcpgj view: Appears normal Cardiac axis: Normal Cord insertion: Normal Stomach: Normal Bladder: Normal Rt foot: Appears normal Lt foot: ABNORMAL Lt foot: clubbing Gender: female Wants to know gender: yes Echocardiogram 2D Echo (Qualitatively) 4-chamber view: Appears normal LVOT view: Appears normal RVOT view: Appears normal 3-vessel view: Appears normal 8-bqzxiw-cymmhhv view: Appears normal Aortic arch view: Appears normal Ductal arch view: Appears normal SVC: Appears Normal IVC: Appears Normal Cardiac axis: Normal Venous-atrial connections: normal size and morphology AV connections: normal alignment VA connections: normal size and morphology Pulmonary veins: normal size and morphology Right atrium: normal size and morphology Left atrium: normal size and morphology Atrial septum: normal size and morphology Foramen ovale: normal (in the central third/half, flap valve in left atrium) Right ventricle: normal size and morphology Left ventricle: normal size and morphology Ventricular septum: ventricular septum intact (apex to crux) Tricuspid valve: normal size and morphology Mitral valve: normal size and morphology Cross-over gr. arteries: anterior great artery (confirmed to be the pulmonary artery by its branching) which crosses the course of the proximal aorta, indicative of normal relationship of the great arteries Main PA: the main pulmonary artery can be seen bifurcating into the ductus arteriosus and the right pulmonary artery B and M-Mode Measurements Thoracic circ 163.4 mm 28% [place] Thoracic area 21.2 cm ThC / AC 0.83 Cardiac axis 39 Cardiac circ 83.1 mm Cardiac area 5.5 cm CC / ThC 0.51 CA / Reynaldo 0.26 RA length diast 8.28 mm RA width diast 9.92 mm RV width diast 8.47 mm 19% Monae RV wall diast 2.22 mm 40% Monae LA length diast 8.4 mm LA width diast 7.1 mm LV width diast 8.01 mm 15% Monae LV wall diast 1.72 mm 4% Monae IV Septum diast 1.60 mm 3% Monae RV inlet 9.73 mm LV inlet 12.42 mm TV annulus diast 3.7 mm MV annulus diast 3.6 mm MV annulus diast / TV annulus diast 0.98 Ao asc 3.68 mm Ao isthmus 3.7 mm 70% Óscar Ao desc 2.89 mm IVC 2.69 mm SVC 2.98 mm RV width diast Zscore (FL) -0.78 RV width diast Zscore (BPD) -0.34 RV width diast Zscore (GA) -0.35 RV width diast Zscore by: Sherman LV width diast Zscore (FL) -0.90 LV width diast Zscore (BPD) -0.38 LV width diast Zscore (GA) -0.40 LV width diast Zscore by: Sherman RV inlet Zscore (FL) -3.85 RV inlet Zscore (BPD) -3.15 RV inlet Zscore (GA) -3.18 RV inlet Zscore by: Sherman LV inlet Zscore (FL) -3.39 LV inlet Zscore (BPD) -2.66 LV inlet Zscore (GA) -2.55 LV inlet Zscore by: Sherman RV area Zscore by: Sherman LV area Zscore by: Sherman TV annulus diast Zscore (FL) -5.39 TV annulus diast Zscore (BPD) -4.72 TV annulus diast Zscore (GA) -4.88 TV annulus diast Zscore by: Sherman MV annulus diast Zscore (FL) -6.15 MV annulus diast Zscore (BPD) -5.27 MV annulus diast Zscore (GA) -5.18 MV annulus diast Zscore by: Sherman PV annulus syst Zscore by: Sherman AoV annulus syst Z-score by: Sherman PA main Zscore by: Sherman Ductus arteriosus Zscore by: Sherman Rt PA branch Zscore by: Sherman Lt PA branch Zscore by: Sherman Ao asc Zscore (FL) -1.56 Ao asc Zscore (BPD) -1.09 Ao asc Zscore (GA) -0.97 Ao asc Zscore by: Sherman Ao isthmus Zscore (FL) 2.59 Ao isthmus Zscore (BPD) 2.43 Ao isthmus Zscore (GA) 2.61 Ao isthmus Zscore (EFW) 2.91 Ao isthmus Zscore by: Abelino Ao desc Zscore (FL) -2.23 Ao desc Zscore (BPD) -1.57 Ao desc Zscore (GA) -1.70 Ao desc Zscore by: Sherman IVC Zscore (FL) -0.29 IVC Zscore (BPD) 0.03 IVC Zscore (GA) 0.02 IVC Zscore by: Sherman Intracardial Spectral Doppler TV E-wave 36.18 cm/s 40% Hecher TV A-wave 48.72 cm/s 16% Hecher TV E / A 0.74 86% Hecher MV E-wave 31.88 cm/s 40% Hecher MV A-wave 47.65 cm/s 30% Hecher MV E / A 0.67 70% Hecher PV Vmax -66.98 cm/s PV Vmax regurg 0.00 cm/s PV Peak PG regurg 0.00 mmHg AoV Vmax -79.69 cm/s AoV Vmax regurg 0.00 cm/s AoV Peak PG regurg 0.00 mmHg Speckle Tracking Device/Procedure: Transabdominal ultrasound examination Maternal Structures Uterus / Cervix Cervical length 51.1 mm Consultation / Office Visit Office note to follow Impression Today's exam reveals a SIUP in cephalic presentation with biometry consistent with dates. Limited anatomic survey appears normal other than known left clubfoot and SUA. Normal 4-chamber cardiac view appears normal. Normal right and left ventricular outflow tracts. Normal ductal and aortic arch views. The foramen ovale is patent. The cardiac axis is normal. There is no evidence of a arrhythmia. There is no evidence of a ventricular septal defect by color-flow Doppler. No pleural or pericardial effusion. See detailed echocardiogram parameters as above. The amniotic fluid is normal. The placenta is posterior with low and marginal cord insertion with potential vessels near the internal cervical os likely consistent with vasa previa. Recommendation 4 weeks. Coding ======= Description: 73287-24 Follow Up Ultrasound Description: 49430-99 Echo 2D, heart - initial Description: 10887-03 Doppler echo color flow Description: 53410-94 Transvaginal Ultrasound OB Belt Polisher: Chantel Bills RDMS Physician: Phil Dsouza MD, FACOG Electronically signed by: Phil Dsouza MD, FACOG at: 11:26 Procedure Note Phil Dsouza MD - 03/10/2025 PAT NAME: JES WALL MED REC#: [id number] DA: [id number] PAT GEND: F PAT TYPE: O EXAM PALLAVI: [id number] REF PHYS XIOMY SLAUGHTER Belt Polisher Comments TV chaperoned by Dr. Dsouza. Comparison Studies The findings of this study are compared to the prior ultrasound studydated 02/09/25. Patient Status Outpatient Indication ======== IVF (donor egg). CHTN. Morbid obesity BMI 43 Maternal Assessment Ngfrwy289 cm Height (ft)5 ft Height (in)6 in Xxgwhe209 kg Weight (lb)266 lb BMI43.26 kg/m Method ======= Transabdominal ultrasound examination ========= Ortiz . Number of fetuses: 1 Dating ====== GA by prior [id number] w + 1 d JACKIE by prior assessment:06/29/2025 Ultrasound examination on:03/10/2025 GA by U/S based upon:AC, BPD, Femur, HC GA by U/S24 w + 2 d JACKIE by U/S:06/28/2025 Method of dating:Restore dating from previous exam Previous dating:based on stated JACKIE, selected on 02/09/2025 Agreed JACKIE of previous datin06/29/2025 Assigned:based on stated JACKIE, selected on 02/09/2025 Assigned GA24 w + 1 d Assigned JACKIE:06/29/2025 [id number] d Biometry Standard BPD59.6 mm 24w 2d 50% Hadlock OFD76.8 mm 25w 1d 84% Dylon HC218.6 mm 23w 6d 23% Hadlock Cerebellum tr25.8 mm 23w 2d 40% Hill AC197.8 mm 24w 3d 51% Hadlock Femur44.2 mm 24w 4d 50% Hadlock Idgfgrf40.6 mm 24w 1d 39% Dylon HC / AC1.11 GQL812 g 24w 1d 54% Hadlock EFW (lb)1 lb EFW (oz)8 oz EFW by:Hadlock (HUS-IV-IL-FL) Extended Cav. septi pel. tr4.4 mm Vp4.4 mm CM4.9 mm 19% Nicolaides Head / Face / Neck Cephalic index0.78 40% Nicolaides Thorax / Lungs Thoracic opjz013.4 mm 28% [place] Thoracic area21.2 cm ThC / AC0.83 Heart / Great Vessels Cardiac axis39 Cardiac circ83.1 mm Cardiac area5.5 cm CC / ThC0.51 CA / ThA0.26 Ao asc3.68 mm Ao isthmus3.7 mm 70% Óscar Ao desc2.89 mm IVC2.69 mm SVC2.98 mm Extremities / Bony Struc FL / BPD0.74 FL / HC0.20 FL / AC0.22 Other Structures DCP301 bpm General Evaluation Cardiac activity present. FHR 142 bpm. movements present. Presentation cephalic. Placenta Placental site: posterior. Umbilical cord Cord vessels: 2 vessel cord. Insertion site: marginalinferiorly. Amniotic fluid Amount of AF: normal. MVP 4.1 cm. Anatomy Cranium:Normal Cavum septi pellucidi:Normal Cerebellum:Normal Cisterna magna:Normal Head / Neck Rt lateral ventricle:Normal Lt lateral ventricle:Normal Lips:Normal Profile:Normal Nose:Normal 4-chamber view:Appears normal RVOT view:Appears normal LVOT view:Appears normal Heart / Thorax Aortic arch view:Appears normal Ductal arch view:Appears normal SVC:Appears Normal IVC:Appears Normal 3-vessel view:Appears normal 8-qybgot-mxsmmwh view:Appears normal Cardiac axis:Normal Cord insertion:Normal Stomach:Normal Bladder:Normal Rt foot:Appears normal Lt foot:ABNORMAL Lt foot:clubbing Gender:female Wants to know gender:yes Echocardiogram 2D Echo (Qualitatively) 4-chamber view:Appears normal LVOT view:Appears normal RVOT view:Appears normal 3-vessel view:Appears normal 6-wfhbcv-pcxfbxb view:Appears normal Aortic arch view:Appears normal Ductal arch view:Appears normal SVC:Appears Normal IVC:Appears Normal Cardiac axis:Normal Venous-atrial connections:normal size and morphology AV connections:normal alignment VA connections:normal size and morphology Pulmonary veins:normal size and morphology Right atrium:normal size and morphology Left atrium:normal size and morphology Atrial septum:normal size and morphology Foramen ovale:normal (in the central third/half, flap valve in leftatrium) Right ventricle:normal size and morphology Left ventricle:normal size and morphology Ventricular septum:ventricular septum intact (apex to crux) Tricuspid valve:normal size and morphology Mitral valve:normal size and morphology Cross-over gr. arteries:anterior great artery (confirmed to be thepulmonary artery by its branching) which crosses the course of theproximal aorta, indicative of normal relationship of the great arteries Main PA:the main pulmonary artery can be seen bifurcating into the ductusarteriosus and the right pulmonary artery B and M-Mode Measurements Thoracic svmz045.4 mm 28% [place] Thoracic area21.2 cm ThC / AC0.83 Cardiac axis39 Cardiac circ83.1 mm Cardiac area5.5 cm CC / ThC0.51 CA / ThA0.26 RA length diast8.28 mm RA width diast9.92 mm RV width diast8.47 mm 19% Monae RV wall diast2.22 mm 40% Monae LA length diast8.4 mm LA width diast7.1 mm LV width diast8.01 mm 15% Monae LV wall diast1.72 mm 4% Monae IV Septum diast1.60 mm 3% Monae RV inlet9.73 mm LV inlet12.42 mm TV annulus diast3.7 mm MV annulus diast3.6 mm MV annulus diast / TV annulus diast0.98 Ao asc3.68 mm Ao isthmus3.7 mm 70% Óscar Ao desc2.89 mm IVC2.69 mm SVC2.98 mm RV width diast Zscore (FL)-0.78 RV width diast Zscore (BPD)-0.34 RV width diast Zscore (GA)-0.35 RV width diast Zscore by:Sherman LV width diast Zscore (FL)-0.90 LV width diast Zscore (BPD)-0.38 LV width diast Zscore (GA)-0.40 LV width diast Zscore by:Sherman RV inlet Zscore (FL)-3.85 RV inlet Zscore (BPD)-3.15 RV inlet Zscore (GA)-3.18 RV inlet Zscore by:Sherman LV inlet Zscore (FL)-3.39 LV inlet Zscore (BPD)-2.66 LV inlet Zscore (GA)-2.55 LV inlet Zscore by:Sherman RV area Zscore by:Sherman LV area Zscore by:Sherman TV annulus diast Zscore (FL)-5.39 TV annulus diast Zscore (BPD)-4.72 TV annulus diast Zscore (GA)-4.88 TV annulus diast Zscore by:Sherman MV annulus diast Zscore (FL)-6.15 MV annulus diast Zscore (BPD)-5.27 MV annulus diast Zscore (GA)-5.18 MV annulus diast Zscore by:Sherman PV annulus syst Zscore by:Sherman AoV annulus syst Z-score by:Sherman PA main Zscore by:Sherman Ductus arteriosus Zscore by:Sherman Rt PA branch Zscore by:Sherman Lt PA branch Zscore by:Sherman Ao asc Zscore (FL)-1.56 Ao asc Zscore (BPD)-1.09 Ao asc Zscore (GA)-0.97 Ao asc Zscore by:Sherman Ao isthmus Zscore (FL)2.59 Ao isthmus Zscore (BPD)2.43 Ao isthmus Zscore (GA)2.61 Ao isthmus Zscore (EFW)2.91 Ao isthmus Zscore by:Abelino Ao desc Zscore (FL)-2.23 Ao desc Zscore (BPD)-1.57 Ao desc Zscore (GA)-1.70 Ao desc Zscore by:Sherman IVC Zscore (FL)-0.29 IVC Zscore (BPD)0.03 IVC Zscore (GA)0.02 IVC Zscore by:Sherman Intracardial Spectral Doppler TV E-wave36.18 cm/s 40% Hecher TV A-wave48.72 cm/s 16% Hecher TV E / A0.74 86% Hecher MV E-wave31.88 cm/s 40% Hecher MV A-wave47.65 cm/s 30% Hecher MV E / A0.67 70% Hecher PV Vmax-66.98 cm/s PV Vmax regurg0.00 cm/s PV Peak PG regurg0.00 mmHg AoV Vmax-79.69 cm/s AoV Vmax regurg0.00 cm/s AoV Peak PG regurg0.00 mmHg Speckle Tracking Device/Procedure:Transabdominal ultrasound examination Maternal Structures Uterus / Cervix Cervical rztigf82.1 mm Consultation / Office Visit Office note to follow Impression Today's exam reveals a SIUP in cephalic presentation with biometryconsistent with dates. Limited anatomic survey appears normal otherthan known left clubfoot and SUA. Normal 4-chamber cardiac view appears normal. Normal right andleft ventricular outflow tracts. Normal ductal and aortic arch views. Theforamen ovale is patent. The cardiac axis is normal. There is no evidence of a fetalarrhythmia. There is no evidence of a ventricular septal defect bycolor-flow Doppler. No pleural or pericardial effusion. See detailed echocardiogram parameters asabove. The amniotic fluid is normal. The placenta is posterior with lowand marginal cord insertion with potential vessels near the internal cervical os likelyconsistent with vasa previa. Recommendation 4 weeks. Coding ======= Description:70918-14 Follow Up Ultrasound Description:08733-36 Echo 2D, heart - initial Description:85220-49 Doppler echo color flow Description:38320-10 Transvaginal Ultrasound OB Belt Polisher: Chantel Bills RDMS Physician: Phil Dsouza MD, FACOG Electronically signed by: Phil Dsouza MD, FACOG at: 11:26 us Zoila Gandhi MD IMG US ORDERABLES Final Res ult documented in this encounter Visit Diagnoses Diagnosis Clubfoot of left lower extremity- Primary Single umbilical artery affecting management of mother in ortiz , antepartum resulting from in vitro fertilization, antepartum Premature ovarian failure Other ovarian dysfunction Class 3 severe obesity without serious comorbidity with body mass index (BMI) of 40.0 to 44.9 in adult, unspecified obesity type White coat syndrome without diagnosis of hypertension 20 weeks gestation of Clubfoot of left lower extremity Single umbilical artery affecting management of mother in ortiz , antepartum resulting from in vitro fertilization, antepartum Premature ovarian failure Other ovarian dysfunction Class 3 severe obesity without serious comorbidity with body mass index (BMI) of 40.0 to 44.9 in adult, unspecified obesity type White coat syndrome without diagnosis of hypertension 20 weeks gestation of documented in this encounter Care Teams Art Handler Relationship Specialty Start Date End Date Lisa Garner MD [address] [place] [address] PCP - General Family Medicine 01/14/25 documented as of this encounter
--- OUTSIDE RECORDS SUMMARY | 2025-03-10 09:55 | XMS_ITS | Encounter Summary ---
[facility] Address [address] [place] [address] Care Team Providers Care User Experience Team Lead Name Role Phone Lisa Garner MD Primary Care Provider [phone] Reason for Referral * Diagnostic Imaging (Routine) [...] of hypertension 20 weeks gestation of Procedures [facility] Zoila Gandhi MD [address] [facility] [address] [place] [address] Phone: tel: fax: [facility] [address] [place] [address] Phone: tel: Referral ID Status Reason Start Date Expiration Date Visits Re quested Visits Authorized [id number] Closed 02/09/2025 05/11/2026 1 1 Reason for Visit * Diagnostic [...] of hypertension 20 weeks gestation of Procedures [facility] Zoila Gandhi MD [address] [place] [address] Phone: tel: fax: [facility] [address] [place] [address] Phone: tel: Referral ID Status Reason Start Date Expiration Date Visits Re quested Visits Authorized [id number] Closed 02/09/2025 05/11/2026 1 1 Encounter Details Date Type Department Care Team (Late st Contact Info) Description 03/10/2025 9:55 AM EDT - 03/10/2025 11:59 PM EDT Hospital Encounter [facility] [address] [place] [address] Zoila Gandhi MD [address] [id number] Clubfoot of left lower extremity; Single umbilical artery affecting management of mother in ortiz , antepartum; resulting from in vitro fertilization, antepartum; Premature ovarian failure; Class 3 severe obesity without serious comorbidity with body mass index (BMI) of 40.0 to 44.9 in adult, unspecified obesity type; White coat syndrome without diagnosis of hypertension; 20 weeks gestation of Discharge Disposition: Home or Self Care Social [...] Info) Description 04/20/2025 10:00 AM EDT Appointment [facility] [address] [place] [address] documented as of this encounter Procedures Procedure Name Priority Date/Time Associated Diagnosis Comments [facility] Routine 03/10/2025 11:13 AM EDT Clubfoot of left lower extremity Single umbilical artery affecting management of mother in ortiz , antepartum resulting from in vitro fertilization, antepartum Premature ovarian failure Class 3 severe obesity without serious comorbidity with body mass index (BMI) of 40.0 to 44.9 in adult, unspecified obesity type White coat syndrome without diagnosis of hypertension 20 weeks gestation of documented in this encounter Results * [facility] (03/10/2025 11:13 AM EDT) Anatomical Region Laterality Modality Ultrasound 03/10/2025 10:0 3 AM EDT Narrative 03/10/2025 11:26 AM EDT PAT NAME: JES WALL MED REC#: [id number] DA: [id number] PAT GEND: F PAT TYPE: O EXAM PALLAVI: [id number] REF PHYS XIOMY [facility] Mechanical Pencils Assembler Comments TV chaperoned by Dr. Dsouza. Comparison [...] EFW (oz) 8 oz EFW by: Hadlock ([id number]) Extended Cav. septi pel. tr 4.4 mm Facilities Planner 4.4 mm CM 4.9 mm 19% Nicolaides [...] IVC: Appears Normal 3-vessel view: Appears normal 5-kvkngf-vahkdkc view: Appears normal Cardiac axis: Normal Cord insertion: Normal Stomach: Normal Bladder: Normal Rt foot: Appears normal Lt foot: ABNORMAL Lt foot: clubbing Gender: female Wants to know gender: yes Echocardiogram 2D Echo (Qualitatively) 4-chamber view: Appears normal LVOT view: Appears normal RVOT view: Appears normal 3-vessel view: Appears normal 9-hgkjxn-riyejpv view: Appears normal Aortic arch view: Appears [...] (GA) -0.40 LV width diast Zscore by: Whitaker RV inlet Zscore (FL) -3.85 RV inlet Zscore (BPD) -3.15 RV inlet Zscore (GA) -3.18 RV inlet Zscore by: Whitaker LV inlet Zscore (FL) -3.39 LV inlet Zscore (BPD) -2.66 LV inlet Zscore (GA) -2.55 LV inlet Zscore by: Whitaker RV area Zscore by: Sherman LV area [...] previa. Recommendation 4 weeks. Coding ======= Description: 52052-46 Follow Up Ultrasound Description: 87844-06 Echo 2D, heart - initial Description: 12480-99 Doppler echo color flow Description: 78233-29 Transvaginal Ultrasound OB Mechanical Pencils Assembler: Chantel Bills RDMS Physician: Phil Dsouza MD, FACOG Electronically signed by: Phil Dsouza MD, FACOG at: 11:26 Procedure Note Phil Dsouza MD - 03/10/2025 PAT NAME: JES WALL MED REC#: [id number] DA: [id number] PAT GEND: F PAT TYPE: O EXAM PALLAVI: [id number] REF PHYS KENNY XIOMY Mechanical Pencils Assembler Comments TV chaperoned by Dr. Dsouza. Comparison Studies The findings of this study are compared to the prior ultrasound studydated 02/09/25. Patient Status Outpatient Indication ======== IVF (donor egg). CHTN. Morbid obesity BMI 43 Maternal Assessment Vpkmzf391 cm Height (ft)5 ft Height (in)6 in Tzxppp754 kg Weight (lb)266 lb BMI43.26 kg/m Method ======= Transabdominal ultrasound examination ========= Ortiz . Number of fetuses: 1 Dating ====== GA by prior [id number] w + 1 d JACKIE by prior [...] GA24 w + 1 d Assigned JACKIE:06/29/2025 [id number] d Biometry Standard BPD59.6 mm 24w 2d 50% Hadlock OFD76.8 mm 25w 1d 84% Dylon HC218.6 mm 23w 6d 23% Hadlock Cerebellum tr25.8 mm 23w 2d 40% Hill AC197.8 mm 24w 3d 51% Hadlock Femur44.2 mm 24w 4d 50% Hadlock Naivacz82.6 mm 24w 1d 39% Dylon HC / AC1.11 FSU781 g 24w 1d 54% Hadlock EFW (lb)1 lb EFW (oz)8 oz EFW by:Hadlock ([id number]) Extended Cav. septi pel. tr4.4 mm Vp4.4 mm CM4.9 mm 19% Nicolaides Head / Face / Neck Cephalic index0.78 40% Nicolaides Thorax / Lungs Thoracic teuq322.4 mm 28% [place] Thoracic area21.2 cm ThC / AC0.83 Heart / Great Vessels Cardiac axis39 Cardiac circ83.1 mm Cardiac area5.5 cm CC / ThC0.51 CA / ThA0.26 Ao asc3.68 mm Ao isthmus3.7 mm 70% Óscar Ao desc2.89 mm IVC2.69 mm SVC2.98 mm Extremities / Bony Struc FL / BPD0.74 FL / HC0.20 FL / AC0.22 Other Structures JTU304 bpm General Evaluation Cardiac activity present. FHR [...] SVC:Appears Normal IVC:Appears Normal 3-vessel view:Appears normal 2-zbrqqy-gehtena view:Appears normal Cardiac axis:Normal Cord insertion:Normal Stomach:Normal Bladder:Normal Rt foot:Appears normal Lt foot:ABNORMAL Lt foot:clubbing Gender:female Wants to know gender:yes Echocardiogram 2D Echo (Qualitatively) 4-chamber view:Appears normal LVOT view:Appears normal RVOT view:Appears normal 3-vessel view:Appears normal 9-nuddvs-igsnrfw view:Appears normal Aortic arch view:Appears normal Ductal [...] pulmonary artery B and M-Mode Measurements Thoracic ilqi089.4 mm 28% [place] Thoracic area21.2 cm ThC [...] examination Maternal Structures Uterus / Cervix Cervical .1 mm Consultation / Office Visit Office note [...] vasa previa. Recommendation 4 weeks. Coding ======= Description:00679-74 Follow Up Ultrasound Description:77748-71 Echo 2D, heart - initial Description:02533-61 Doppler echo color flow Description:67260-25 Transvaginal Ultrasound OB Mechanical Pencils Assembler: Chantel Bills RDMS Physician: Phil Dsouza MD, FACOG Electronically signed by: Phil Dsouza MD, FACOG at: 11:26 us Zoila Gandhi MD IMG US ORDERABLES Final Res ult documented in this encounter Visit Diagnoses Diagnosis Clubfoot of left lower extremity Single umbilical [...] of documented in this encounter Care Teams User Experience Team Lead Relationship Specialty Start Date End Date Lisa Garner MD [address] [place] [address] PCP - General Family Medicine 01/14/25 documented as of this encounter
--- OUTSIDE RECORDS SUMMARY | 2025-03-10 10:15 | XMS_ITS | Encounter Summary ---
[facility] Address [address] [place] [address] Care Team Providers Care Waitstaff Name Role Phone Lisa Garner MD Primary Care Provider [phone]- [phone] Reason for Referral * Diagnostic Imaging (Routine) - Closed Specialty Diagnoses / Procedures Referred By Pablo avila Referred To Contact Radiology Diagnoses resulting from in vitro fertilization in second trimester Single umbilical artery affecting management of mother in ortiz , antepartum Clubfoot of left lower extremity Procedures US [facility] Phil Dsouza MD [address] [place] [address] Phone: tel: fax: [facility] US PER DIAG CTR [address] [place] [address] Phone: tel: Referral ID Status Reason Start Date Expiration Date Visits Re quested Visits Authorized [id number] Closed 03/10/2025 06/09/2026 1 1 Reason for Visit * Reason Comments IVF (donor egg), CHTN, MO, 2VC & L-sided clubbed foot Encounter Details Date Type Department Care Team (Late st Contact Info) Description 03/10/2025 10:15 AM EDT Office Visit [facility] MATERNAL MEDIC[facility] [address] [place] [address] Phil Dsouza MD [address] [place] [address] resulting from in vitro fertilization in second trimester (Primary Dx); Single umbilical artery affecting management of mother in ortiz , antepartum; Clubfoot of left lower extremity; Marginal insertion of umbilical cord affecting management of mother in second trimester Social History Tobacco Use Types Packs/Day Years [...] Sign Reading Time Taken Comments Blood Pressure 118/82 03/10/2025 9:58 AM EDT Pulse - - Temperature - - Respiratory Rate - - Oxygen Saturation - - Inhaled Oxygen Concentration - - Weight 121 kg (265 lb 12.8 oz) 03/10/2025 9:58 A M EDT Height - - Body Mass Index 42.9 02/09/2025 1:26 PM EDT documented in this encounter Progress Notes * Phil Dsouza MD - 03/10/2025 11:10 AM EDTAssociated Problem(s): Marginal insertion of umbilical cord affecting management of mother in second trimester with concern for vasa previa Today's ultrasound shows a posterior placenta with a marginal cord insertion with the insertion at the lower portion of the placenta approaching the cervical canal. It does appear that some vessels may traverse near the internal cervical os. We discussed that there is a concern for VASA PREVIA based on imaging today. We discussed strict return precautions regarding and leaking of fluid. Reassuringly her cervical length is greater than 5 cm centimeters. We discussed that with repeat ultrasound in 4 weeks if it were to remain a vasa previa that inpatient admission is sometimes warranted with early delivery roughly around 34 weeks. * Phil Dsouza MD - 03/10/2025 10:43 AM EDTAssociated Problem(s): Clubfoot of left lower extremity Foot still appears clubbed on today's ultrasound. Right lower extremity better visualized today andappears normal. * Phil Dsouza MD - 03/10/2025 10:39 AM EDTAssociated Problem(s): Single umbilical artery affecting management of mother in ortiz , antepartum Patient presents for follow-up growth ultrasound secondary to IVF and single umbilical artery. Today's ultrasound shows normal growth with normal amniotic fluid. * Iman Patten RN - 03/10/2025 10:15 AM EDT Denies vaginal bleeding, leaking fluid, and contractions. Endorses normal movement. NIPT declined. Next OB follow-up appointment with Dr. Slaughter on 03/18/2025. * Phil Dsouza MD - 03/10/2025 10:15 AM EDT Maternal/ Medicine Consult Note Date: 03/10/2025 Name: Jes Wall : 2000 Referring Provider: Xiomy Slaughter DO Chief Complaint IVF (donor egg), CHTN, MO, 2VC & L-sided clubbed foot Subjective History of Present Illness: Jes Wall is a 24 y.o. 24w1d who presents today for IVF, single umbilical artery and left clubfoot JACKIE: Estimated Date of Delivery: 06/29/25 ROS: Otherwise Noted in HPI Current Outpatient Medications: aspirin 81 MG EC tablet, Take 1 tablet by mouth 2 (Two) Times a Day., Disp: , Rfl: MV & Min w/FA-DHA ( GUMMIES PO), Take 2 tablets by mouth Daily., Disp: , Rfl: Objective Vital Signs BP 118/82 Wt 121 kg (265 lb 12.8 oz) Estimated body mass index is 42.9 kg/m?? as calculated from the following: Height as of 02/09/25: 167.6 cm (66 ). Weight as of this encounter: 121 kg (265 lb 12.8 oz). Ultrasound Impression: See Viewpoint Assessment and Plan Jes Wall is a 24 y.o. 24w1d who presents today for IVF, single umbilical artery and left clubfoot Diagnoses and all orders for this visit: 1. resulting from in vitro fertilization in second trimester (Primary) Assessment & Plan: Patient presents for follow-up ultrasound and echo secondary to IVF . We discussed the limitations of IVF including diagnosing valvular abnormalities and small VSDs. Orders: - [facility]; Future 2. Single umbilical artery affecting management of mother in ortiz , antepartum Assessment & Plan: Patient presents for follow-up growth ultrasound secondary to IVF and single umbilical artery. Today's ultrasound shows normal growth with normal amniotic fluid. Orders: - [facility]; Future 3. Clubfoot of left lower extremity Assessment & Plan: Foot still appears clubbed on today's ultrasound. Right lower extremity better visualized today andappears normal. Orders: - [facility]; Future 4. Marginal insertion of umbilical cord affecting management of mother in second trimester Assessment & Plan: Today's ultrasound shows a posterior placenta with a marginal cord insertion with the insertion at the lower portion of the placenta approaching the cervical canal. It does appear that some vessels may traverse near the internal cervical os. We discussed that there is a concern for VASA PREVIA based on imaging today. We discussed strict return precautions regarding and leaking of fluid. Reassuringly her cervical length is greater than 5 cm centimeters. We discussed that with repeat ultrasound in 4 weeks if it were to remain a vasa previa that inpatient admission is sometimes warranted with early delivery roughly around 34 weeks. Follow Up 4 weeks I spent 20 minutes caring for the patient on the [...] other procedures such as amniocentesis or CVS. Phil Dsouza MD, FACOG Maternal Medicine, [facility] * Phil Dsouza MD - 03/10/2025 10:12 AM EDTAssociated Problem(s): conceived through in vitro fertilization Patient presents for follow-up ultrasound and echo secondary to IVF . We discussed the limitations of IVF including diagnosing valvular abnormalities and small VSDs. documented in this encounter Plan of Treatment Upcoming Encounters Date Type Department Care Team (Late st Contact Info) Description 04/20/2025 10:00 AM EDT Appointment [facility] LABOR AND DELIVERY PROCEDURES [address] [place] [address] documented as of this encounter Results * [facility] (04/07/2025 11:53 AM EDT) Anatomical Region Laterality Modality Ultrasound 04/07/2025 10:5 3 AM EDT Narrative 04/07/2025 11:57 AM EDT PAT NAME: JES WALL MED REC#: [id number] DA: 2000 PAT GEND: F PAT TYPE: O EXAM PALLAVI: [id number] REF PHYS XIOMY SLAUGHTER Comparison Studies The findings of this study are compared to the prior ultrasound study dated 03/10/25 Patient Status Outpatient Indication ======== IVF (donor egg), CHTN, Morbid obesity BMI 43, vasa previa Maternal Assessment Height 167 cm Height (ft) 5 ft Height (in) 6 in Weight 120 kg Weight (lb) 265 lb BMI 43.10 kg/m Method ======= Transabdominal ultrasound examination ========= Ortiz . Number of fetuses: 1 Dating ====== Method of dating: based on stated JACKIE GA by prior assessment 28 w + 1 d JACKIE by prior assessment: 06/29/2025 Ultrasound examination on: 04/07/2025 GA by U/S based upon: AC, BPD, Femur, HC GA by U/S 28 w + 1 d JACKIE by U/S: 06/29/2025 Previous dating: based on stated JACKIE, selected on 02/09/2025 Agreed JACKIE of previous datin06/29/2025 Assigned: based on stated JACKIE, selected on 04/07/2025 Assigned GA 28 w + 1 d Assigned JACKIE: 06/29/2025 length 280 d Biometry Standard BPD 68.5 mm 27w 4d 20% Hadlock OFD 94.9 mm 30w 4d 96% Dylon HC 262.6 mm 28w 4d 31% Hadlock AC 232.5 mm 27w 4d 26% Hadlock Femur 54.0 mm 28w 4d 48% Hadlock HC / AC 1.13 EFW 1,163 g 27w 5d 33% Hadlock EFW (lb) 2 lb EFW (oz) 9 oz EFW by: Hadlock (MNS-ZH-SN-FL) Extended Cav. septi pel. tr 5.7 mm Chemical Research Technician 6.0 mm Head / Face / Neck Cephalic index 0.72 2% Nicolaides Extremities / Bony Struc FL / BPD 0.79 FL / HC 0.21 FL / AC 0.23 Other Structures FHR 131 bpm General Evaluation Cardiac activity present. FHR 131 bpm. movements present. Presentation breech. Placenta Placental site: posterior. Umbilical cord Cord vessels: absence of the right umbilical artery, 2 vessel cord. Insertion site: vasa previa, velamentous insertion inferiorly . Amniotic fluid Amount of AF: normal. MVP 4.4 cm. Anatomy Cranium: Normal Cavum septi pellucidi: Normal Cerebellum: Normal Cisterna magna: Normal Head / Neck Rt lateral ventricle: Normal Lt lateral ventricle: Normal Lips: Normal Profile: Normal Nose: Normal 4-chamber view: Appears normal RVOT view: Normal LVOT view: Normal Heart / Thorax 3-vessel view: Normal 1-lprqux-xuztyck view: normal Cord insertion: Normal Stomach: Appears normal Kidneys: Appears normal Bladder: Appears normal Gender: female Wants to know gender: yes Maternal Structures Uterus / Cervix Cervical length 45.0 mm Impression Jes presents for a follow-up ultrasound to assess interval growth and wellbeing and to re-assess placental cord insertion. On today's exam, SIUP is noted in breech presentation with biometry measuring consistent with dates. EFW measures at the 33rd percentile. AC measures at the 26th percentile. There is a normal amount of amniotic fluid. Placenta is posterior and the umbilical cord insertion is velamentous into the amnion adjacent to the internal os of the cervix and courses in the membranes both anteriorly and posteriorly. Cervical length appears adequate. Limited but normal appearing anatomy is visualized. Recommendation Plan is for admission to APU at 30wks for frequent testing and delivery at 34wks. Coding ======= Description: 18106-81 Follow Up Ultrasound Description: 89715-70 Transvaginal Ultrasound OB Filling Hauler: Mahogany Santana RDMS Physician: Zoila Gandhi MD Electronically signed by: Zoila Gandhi MD at: 11:57 Procedure Note Zoila Gandhi MD - 04/07/2025 PAT NAME: JES WALL MED REC#: [id number] DA: 2000 PAT GEND: F PAT TYPE: O EXAM PALLAVI: [id number] REF PHYS XIOMY SLAUGHTER Comparison Studies The findings of this study are compared to the prior ultrasound studydated 03/10/25 Patient Status Outpatient Indication ======== IVF (donor egg), CHTN, Morbid obesity BMI 43, vasa previa Maternal Assessment Jcxvpu571 cm Height (ft)5 ft Height (in)6 in Jdrycn147 kg Weight (lb)265 lb BMI43.10 kg/m Method ======= Transabdominal ultrasound examination ========= Ortiz . Number of fetuses: 1 Dating ====== Method of dating:based on stated JACKIE GA by prior [id number] w + 1 d JACKIE by prior assessment:06/29/2025 Ultrasound examination on:04/07/2025 GA by U/S based upon:AC, BPD, Femur, HC GA by U/S28 w + 1 d JACKIE by U/S:06/29/2025 Previous dating:based on stated JACKIE, selected on 02/09/2025 Agreed JACKIE of previous datin06/29/2025 Assigned:based on stated JACKIE, selected on 04/07/2025 Assigned GA28 w + 1 d Assigned JACKIE:06/29/2025 [id number] d Biometry Standard BPD68.5 mm 27w 4d 20% Hadlock OFD94.9 mm 30w 4d 96% Dylon HC262.6 mm 28w 4d 31% Hadlock AC232.5 mm 27w 4d 26% Hadlock Femur54.0 mm 28w 4d 48% Hadlock HC / AC1.13 EFW1,163 g 27w 5d 33% Hadlock EFW (lb)2 lb EFW (oz)9 oz EFW by:Hadlock ([id number]-YC-NS-FL) Extended Cav. septi pel. tr5.7 mm Vp6.0 mm Head / Face / Neck Cephalic index0.72 2% Nicolaides Extremities / Bony Struc FL / BPD0.79 FL / HC0.21 FL / AC0.23 Other Structures INI166 bpm General Evaluation Cardiac activity present. FHR 131 bpm. movements present. Presentation breech. Placenta Placental site: posterior. Umbilical cord Cord vessels: absence of the right umbilical artery, 2vessel cord. Insertion site: vasa previa, velamentous insertion inferiorly. Amniotic fluid Amount of AF: normal. MVP 4.4 cm. Anatomy Cranium:Normal Cavum septi pellucidi:Normal Cerebellum:Normal Cisterna magna:Normal Head / Neck Rt lateral ventricle:Normal Lt lateral ventricle:Normal Lips:Normal Profile:Normal Nose:Normal 4-chamber view:Appears normal RVOT view:Normal LVOT view:Normal Heart / Thorax 3-vessel view:Normal 5-fogyig-czwzekb view:normal Cord insertion:Normal Stomach:Appears normal Kidneys:Appears normal Bladder:Appears normal Gender:female Wants to know gender:yes Maternal Structures Uterus / Cervix Cervical boenez04.0 mm Impression Jes presents for a follow-up ultrasound to assess interval growth andfetal wellbeing and to re-assess placental cord insertion. On today's exam, SIUP is noted in breech presentation with biometrymeasuring consistent with dates. EFW measures at the 33rd percentile. ACmeasures at the 26th percentile. There is a normal amount of amniotic fluid. Placenta isposterior and the umbilical cord insertion is velamentous into the amnionadjacent to the internal os of the cervix and courses in the membranes both anteriorly and posteriorly.Cervical length appears adequate. Limited but normal appearing anatomy is visualized. Recommendation Plan is for admission to APU at 30wks for frequent testing anddelivery at 34wks. Coding ======= Description:04522-75 Follow Up Ultrasound Description:70641-30 Transvaginal Ultrasound OB Filling Hauler: Mahogany Santana RDMS Physician: Zoila Gandhi MD Electronically signed by: Zoila Gandhi MD at: 11:57 Phil Dsouza MD [facility] ORDERABLES Final Result documented in this encounter Visit Diagnoses Diagnosis resulting from in vitro fertilization in second trimester- Primary Single umbilical artery affecting management of mother in ortiz , antepartum Clubfoot of left lower extremity Marginal insertion of umbilical cord affecting management of mother in second trimester resulting from in vitro fertilization in second trimester Single umbilical artery affecting management of mother in ortiz , antepartum Clubfoot of left lower extremity documented in this encounter Care Teams Waitstaff Relationship Specialty Start Date End Date Lisa Garner MD [address] [place] [address] PCP - General Family Medicine 01/14/25 documented as of this encounter
--- OUTSIDE RECORDS SUMMARY | 2025-04-07 10:27 | XMS_ITS | Encounter Summary ---
[facility] Address [address] [place] [address] Care Team Providers Care Digital Photo Printer Name Role Phone Lisa Garner MD Primary Care Provider +1- [phone] Reason for Referral * Diagnostic Imaging (Routine) - Closed Specialty Diagnoses / Procedures Referred By Pablo avila Referred To Contact Radiology Diagnoses resulting from in vitro fertilization in second trimester Single umbilical artery affecting management of mother in ortiz , antepartum Clubfoot of left lower extremity Procedures US [facility] [place] Phil Dsouza MD [address] [facility] [address] [place] [address] Phone: tel: fax: [facility] US PER DIAG CTR [address] [place] [address] Phone: tel: Referral ID Status Reason Start Date Expiration Date Visits Re quested Visits Authorized [id number] Closed 03/10/2025 06/09/2026 1 1 Reason for Visit * Diagnostic Imaging (Routine) - Closed Specialty Diagnoses / Procedures Referred By Pablo avila Referred To Contact Radiology Diagnoses resulting from in vitro fertilization in second trimester Single umbilical artery affecting management of mother in ortiz , antepartum Clubfoot of left lower extremity Procedures [facility] Phil Dsouza MD [address] [facility] [address] [place] [address] Phone: tel: fax: [facility] US PER DIAG CTR [address] [place] [address] Phone: tel: Referral ID Status Reason Start Date Expiration Date Visits Re quested Visits Authorized [id number] Closed 03/10/2025 06/09/2026 1 1 Encounter Details Date Type Department Care Team (Latest Contact Info) Description 04/07/2025 10:27 AM EDT - 04/07/2025 11:59 PM EDT Hospital Encounter [facility] US PER DIAG CTR [address] [place] [address] resulting from in vitro fertilization in second trimester; Single umbilical artery affecting management of mother in ortiz , antepartum; Clubfoot of left lower extremity Discharge Disposition: Home or Self Care Social [...] Info) Description 04/20/2025 10:00 AM EDT Appointment [facility] LABOR AND DELIVERY PROCEDURES [address] [place] [address] documented as of this encounter Procedures Procedure Name Priority Date/Time Associated Diagnosis Comments [facility] Routine 04/07/2025 11:53 AM EDT resulting from in vitro fertilization in second trimester Single umbilical artery affecting management of mother in ortiz , antepartum Clubfoot of left lower extremity documented in this encounter Results * [facility] (04/07/2025 11:53 AM EDT) Anatomical Region Laterality Modality Ultrasound 04/07/2025 10:5 3 AM EDT Narrative 04/07/2025 11:57 AM EDT PAT NAME: JES WALL MED REC#: [id number] DA: [id number] PAT GEND: F PAT TYPE: O EXAM PALLAVI: [id number] REF PHYS XIOMY COX Comparison Studies The findings of this study [...] EFW (oz) 9 oz EFW by: Hadlock (RVY-DN-BC-FL) Extended Cav. septi pel. tr 5.7 mm Clinical Exercise Specialist 6.0 mm Head / Face / Neck [...] Normal Heart / Thorax 3-vessel view: Normal 3-gwgwza-jxadjkr view: normal Cord insertion: Normal Stomach: Appears [...] and delivery at 34wks. Coding ======= Description: 81659-20 Follow Up Ultrasound Description: 62952-34 Transvaginal Ultrasound OB Grip Assembler: Mahogany Santana RDMS Physician: Zoila Gandhi MD Electronically signed by: Zoila Gandhi MD at: 11:57 Procedure Note Zoila Gandhi MD - 04/07/2025 PAT NAME: JES WALL MED REC#: [id number] DA: [id number] PAT GEND: F PAT TYPE: O EXAM PALLAVI: [id number] REF PHYS KENNYXIOMY MEHTA Comparison Studies The findings of this study are compared to the prior ultrasound studydated 03/10/25 Patient Status Outpatient Indication ======== IVF (donor egg), CHTN, Morbid obesity BMI 43, vasa previa Maternal Assessment Irqgiz199 cm Height (ft)5 ft Height (in)6 in Krhszq795 kg Weight (lb)265 lb BMI43.10 kg/m Method ======= Transabdominal ultrasound examination ========= Ortiz . Number of fetuses: 1 Dating ====== Method of dating:based on stated JACKIE GA by prior [id number] w + 1 d JACKIE by prior assessment:06/29/2025 Ultrasound examination on:04/07/2025 GA by U/S based upon:AC, BPD, Femur, HC GA by U/S28 w + 1 d JACKIE by U/S:06/29/2025 Previous dating:based on stated JACKIE, selected on 02/09/2025 Agreed JACKIE of previous datin06/29/2025 Assigned:based on stated JACKIE, selected on 04/07/2025 Assigned GA28 w + 1 d Assigned JACKIE:06/29/2025 [id number] d Biometry Standard BPD68.5 mm 27w 4d 20% Hadlock OFD94.9 mm 30w 4d 96% Dylon HC262.6 mm 28w 4d 31% Hadlock AC232.5 mm 27w 4d 26% Hadlock Femur54.0 mm 28w 4d 48% Hadlock HC / AC1.13 EFW1,163 g 27w 5d 33% Hadlock EFW (lb)2 lb EFW (oz)9 oz EFW by:Hadlock (DRQ-KO-CU-FL) Extended Cav. septi pel. tr5.7 mm Vp6.0 mm Head / Face / Neck Cephalic index0.72 2% Nicolaides Extremities / Bony Struc FL / BPD0.79 FL / HC0.21 FL / AC0.23 Other Structures CUJ069 bpm General Evaluation Cardiac activity present. FHR [...] LVOT view:Normal Heart / Thorax 3-vessel view:Normal 4-xrunyg-ooobmsj view:normal Cord insertion:Normal Stomach:Appears normal Kidneys:Appears normal Bladder:Appears normal Gender:female Wants to know gender:yes Maternal Structures Uterus / Cervix Cervical .0 mm Impression Jes presents for a follow-up [...] frequent testing anddelivery at 34wks. Coding ======= Description:90671-31 Follow Up Ultrasound Description:04266-05 Transvaginal Ultrasound OB Grip Assembler: Mahogany Santana RDMS Physician: Zoila Gandhi MD Electronically signed by: Zoila Gandhi MD at: 11:57 us Phil Dsouza MD IMG US ORDERABLES Final Result documented in this encounter Visit Diagnoses Diagnosis resulting from in vitro fertilization in second trimester Single umbilical artery affecting management of mother in ortiz , antepartum Clubfoot of left lower extremity documented in this encounter Care Teams Digital Photo Printer Relationship Specialty Start Date End Date Lisa Garner MD [address] [place] [address] PCP - General Family Medicine 01/14/25 documented as of this encounter
--- OUTSIDE RECORDS SUMMARY | 2025-04-07 10:45 | XMS_ITS | Encounter Summary ---
[facility] Address [address] [place] [address] Care Team Providers Care Sales Representative Uniforms Name Role Phone Lisa Garner MD Primary Care Provider +1- [phone] Reason for Referral * Diagnostic Imaging (Routine) - Pending Review Specialty Diagnoses / Procedures Referred By Pablo avila Referred To Contact Radiology Diagnoses Clubfoot of left lower extremity Marginal insertion of umbilical cord affecting management of mother in second trimester resulting from in vitro fertilization, antepartum Single umbilical artery affecting management of mother in ortiz , antepartum 28 weeks gestation of Procedures [facility] Zoila Gandhi MD [address] [facility] [address] [place] [address] Phone: tel: fax: Referral ID Status Reason Start Date Expiration Date V isits Requested Visits Authorized [id number] Pending Review 04/07/2025 07/07/2026 1 1 Reason for Visit * Reason Comments IVF, CHTN, 2VC, L club foot, MPCI, MO Encounter Details Date Type Department Care Team (Late st Contact Info) Description 04/07/2025 10:45 AM EDT Office Visit [facility] [address] [facility] [address] [place] [address] Zoila Gandhi MD [address] [facility] [address] [place] [address] Clubfoot of left lower extremity (Primary Dx); Marginal insertion of umbilical cord affecting management of mother in second trimester with concern for vasa previa; resulting from in vitro fertilization, antepartum; Single umbilical artery affecting management of mother in ortiz , antepartum; Vasa previa, single or unspecified fetus; 28 weeks gestation of Social History Tobacco Use [...] Sign Reading Time Taken Comments Blood Pressure 132/66 04/07/2025 10:43 AM EDT Pulse - - Temperature - - Respiratory Rate - - Oxygen Saturation - - Inhaled Oxygen Concentration - - Weight 120 kg (265 lb) 04/07/2025 10:43 AM EDT Height - - Body Mass Index 42.77 02/09/2025 1:26 PM EDT documented in this encounter Progress Notes * Zoila Gandhi MD - 04/07/2025 12:00 PM EDTAssociated Problem(s): Marginal insertion of umbilical cord affecting management of mother in second trimester with concern for vasa previa Actually looks velamentous into the amnion immediately adjacent to the internal os of the cervix consistent with a vasa previa. - Plan is for admission at 30wks as listed below * Zoila Gandhi MD - 04/07/2025 11:59 AM EDTAssociated Problem(s): Single umbilical artery affecting management of mother in ortiz , antepartum Visualized again today. Growth is normal. Amniotic fluid is normal. * Zoila Gandhi MD - 04/07/2025 11:59 AM EDTAssociated Problem(s): Vasa previa Vasa previa is confirmed on today's exam. - Recommend admission to APU at 30wks for TID monitoring for compromise and labor - Will plan on corticosteroids and possibly magnesium sulfate, depending on the clinical picture - Will plan on delivery by primary at 34wks * Iman Patten RN - 04/07/2025 10:45 AM EDT Denies vaginal bleeding, leaking fluid, and contractions. Endorses normal movement. NIPT not done. Next OB follow-up appointment with Dr. Slaughter on 04/21/2025. * Zoila Gandhi MD - 04/07/2025 10:45 AM EDT Images from the original note were not included. Maternal/ Medicine Consult Note Name: Mara Wall : 2000 Referring Provider: Phil Dsouza MD Chief Complaint IVF, CHTN, 2VC, L club foot, MPCI, MO Subjective History of Present Illness: Mara Wall is a 24 y.o. 28w1d who presents today for a follow-up ultrasound. Pt denies LOF/VB/ctx's. +FM. JACKIE: Estimated Date of Delivery: 06/29/25 ROS: [...] with donor egg Objective Vital Signs BP 132/66 Wt 120 kg (265 lb) Estimated body mass index is 42.77 kg/m?? as calculated from the following: Height as of 02/09/25: 167.6 cm (66 ). Weight as of this encounter: 120 kg (265 lb). Physical Exam Constitutional: Appearance: Normal appearance. She [...] content normal. Judgment: Judgment normal. Ultrasound Impression: Breech, S=D, nl FOREST, posterior placenta with velamentous cord insertion adjacent to the internal cervical os consistent with vasa previa, 2VC again noted. Assessment and Plan Diagnoses and all orders for this visit: 1. Clubfoot of left lower extremity (Primary) - [facility]; Future 2. Marginal insertion of umbilical cord affecting management of mother in second trimester with concern for vasa previa Assessment & Plan: Actually looks velamentous into the amnion immediately adjacent to the internal os of the cervix consistent with a vasa previa. - Plan is for admission at 30wks as listed below Orders: - [email or web address]; Future 3. resulting from in vitro fertilization, antepartum - [email or web address]; Future 4. Single umbilical artery affecting management of mother in ortiz , antepartum Assessment & Plan: Visualized again today. Growth is normal. Amniotic fluid is normal. Orders: - [email or web address]; Future 5. Vasa previa, single or unspecified fetus Assessment & Plan: Vasa previa is confirmed on today's exam. - Recommend admission to APU at 30wks for TID monitoring for compromise and labor - Will plan on corticosteroids and possibly magnesium sulfate, depending on the clinical picture - Will plan on delivery by primary at 34wks 6. 28 weeks gestation of - [facility]; Future Follow Up Return in about 4 weeks (around 05/05/2025). I spent 20 minutes caring for the [...] as amniocentesis or [facility]. Zoila Gandhi MD 04/07/2025 documented in this encounter Plan of Treatment Upcoming Encounters Date Type Department Care Team (Late st Contact Info) Description 04/20/2025 10:00 AM EDT Appointment [facility] LABOR AND DELIVERY PROCEDURES [address] [place] [address] Scheduled Orders Name Type Priority Associated Diagnoses Orde r Schedule [facility] Imaging Routine Clubfoot of left lower extremity Marginal insertion of umbilical cord affecting management of mother in second trimester with concern for vasa previa resulting from in vitro fertilization, antepartum Single umbilical artery affecting management of mother in ortiz , antepartum 28 weeks gestation of Expected: 05/05/2025, Expires: 04/07/2026 documented as of this encounter Visit Diagnoses Diagnosis Clubfoot of left lower extremity- Primary Marginal insertion of umbilical cord affecting management of mother in second trimester with concern for vasa previa resulting from in vitro fertilization, antepartum Single umbilical artery affecting management of mother in ortiz , antepartum Vasa previa, single or unspecified fetus 28 weeks gestation of documented in this encounter Care Teams Sales Representative Uniforms Relationship Specialty Start Date End Date Lisa Garner MD [address] [place] [address] PCP - General Family Medicine 01/14/25 documented as of this encounter
--- OUTSIDE RECORDS SUMMARY | 2025-04-08 10:42 | XMS_ITS | Clinical Summary ---
[facility] Address [address] [place] [address] Care Team Providers Care News Content Specialist Name Role Phone Lisa Garner MD Primary Care Provider +1- [phone] Allergies No known active allergies Medications MV & Min w/FA-DHA ( GUMMIES PO) Take 2 tablets by mouth Daily. Active aspirin 81 MG EC tablet Take 1 tablet by mouth 2 (Two) Times a Day. Active Active Problems Problem Noted Date Diagnosed Date Vasa previa 04/07/2025 Assessment & Plan (04/07/2025 11:59 AM EDT): Vasa previa is confirmed on today's exam. - Recommend admission to APU at 30wks for TID monitoring for compromise and labor - Will plan on corticosteroids and possibly magnesium sulfate, depending on the clinical picture - Will plan on delivery by primary at 34wks Marginal insertion of umbili moises cord affecting management of mother in second trimester with concern for vasa previa 03/10/2025 Assessment & Plan (04/07/2025 12:00 PM EDT): Actually looks velamentous into the amnion immediately adjacent to the internal os of the cervix consistent with a vasa previa. - Plan is for admission at 30wks as listed below Assessment & Plan (03/10/2025 11:12 AM EDT): Today's ultrasound shows a posterior placenta with [...] with early delivery roughly around 34 weeks. Clubfoot of left lower extremity 02/09/2025 Assessment & Plan (03/10/2025 10:43 AM EDT): Foot still appears clubbed on today's ultrasound. Right lower extremity better visualized today and appears normal. Assessment & Plan (02/09/2025 3:37 PM EDT): Isolated left club foot is suspected. Normal movement and amniotic fluid are noted. Patient offered genetic screening but she declines as this would not change her management of the . - Follow-up scheduled in 4wks to complete the anatomy conceived through in vitro fertilizati on 02/09/2025 Assessment & Plan (03/10/2025 10:12 AM EDT): Patient presents for follow-up ultrasound and echo secondary to IVF . We discussed the limitations of IVF including diagnosing valvular abnormalities and small VSDs. Assessment & Plan (02/09/2025 3:45 PM EDT): No pre-implantation genetic testing was done on embryo. No genetic screening was done. Anatomy survey as noted with 2 small abnormalities. Offered patient genetic screening and patient declined as it would not change her management of . - Follow-up scheduled in 4wks for completion of the anatomic survey, growth assessment, and for a echo White coat syndrome without diagnosis of hyperte nsion 02/09/2025 Assessment & Plan (02/09/2025 3:41 PM EDT): Patient is currently taking ASA 81mgs 2x/day. She did a baseline 24hr urine protein that was normal. She is not on any medications for BP's. Her BP here today is 132/79. At home it is usually, 110's/70's. - Folllow-up scheduled in 4wks for growth Obesity 02/09/2025 Premature ovarian failure 02/09/2025 Single umbilical artery affe cting management of mother in ortiz , antepartum 02/09/2025 Assessment & Plan (04/07/2025 11:59 AM EDT): Visualized again today. Growth is normal. Amniotic fluid is normal. Assessment & Plan (03/10/2025 10:43 AM EDT): Patient presents for follow-up growth ultrasound secondary to IVF and single umbilical artery. Today's ultrasound shows normal growth with normal amniotic fluid. Assessment & Plan (02/09/2025 3:39 PM EDT): Single umbilical artery (SUA) is the result [...] with other abnormalities. The rate of associated structural anomalies when a single umbilical artery was detected is reported to range from 13 to 56%. The most common associated anomalies to occur are in the renal, cardiovascular, gastrointestinal and central nervous systems. If the ultrasound reveals only a single umbilical artery and no other anomalies, some studies have suggested an increased risk for intrauterine growth retardation. As such, it is reasonable in the setting of a single umbilical artery to repeat ultrasonographic evaluation at 32 weeks' gestation for assessment of the growth and proceed with increased [...] with an anomaly sequence or complex, specifically VATER complex, Meckel-Bora or Zellweger syndrome. Per the ACOG Committee Opinion on an outpatient surveillance from December 2020, increased testing should begin at 36 weeks 0 days gestation and continue weekly for the presence of an isolated single umbilical artery. - Follow-up scheduled in 4wks Estimated Date of Delivery Comme nts Yes 06/29/2025 Date entered shilpi or to episode creation Encounters Date Type Department Care Team Description 04/07/2025 10:45 AM EDT Office Visit [facility] MATERNAL MEDICINE [address] [facility] [address] [place] [phone] Zoila Gandhi MD Clubfoot of left lower extremity (Primary Dx); Marginal insertion of umbilical cord affecting management of mother in second trimester with concern for vasa previa; resulting from in vitro fertilization, antepartum; Single umbilical artery affecting management of mother in ortiz , antepartum; Vasa previa, single or unspecified fetus; 28 weeks gestation of 04/07/2025 10:27 AM EDT - 04/07/2025 11:59 PM EDT Hospital Encounter [facility] [address] [place] [phone] resulting from in vitro fertilization in second trimester; Single umbilical artery affecting management of mother in otriz , antepartum; Clubfoot of left lower extremity Discharge Disposition: Home or Self Care 04/07/2025 Travel 03/10/2025 10:15 AM EDT Office Visit [facility] MATERNAL MEDICINE [address] [phone] Phil Dsouza MD resulting from in vitro fertilization in second trimester (Primary Dx); Single umbilical artery affecting management of mother in ortiz , antepartum; Clubfoot of left lower extremity; Marginal insertion of umbilical cord affecting management of mother in second trimester 03/10/2025 9:55 AM EDT - 03/10/2025 11:59 PM EDT Hospital Encounter [facility] [address] [place] [phone] Zoila Gandhi MD Clubfoot of left lower extremity; Single umbilical artery affecting management of mother in ortiz , antepartum; resulting from in vitro fertilization, antepartum; Premature ovarian failure; Class 3 severe obesity without serious comorbidity with body mass index (BMI) of 40.0 to 44.9 in adult, unspecified obesity type; White coat syndrome without diagnosis of hypertension; 20 weeks gestation of Discharge Disposition: Home or Self Care 03/10/2025 Travel 02/09/2025 1:30 PM EDT Office Visit [facility] MATERNAL MEDICINE [address] [facility] [address] [place] [address] Zoila Gandhi MD Clubfoot of left lower extremity (Primary Dx); Single umbilical artery affecting management of mother in ortiz , antepartum; resulting from in vitro fertilization, antepartum; Premature ovarian failure; Class 3 severe obesity without serious comorbidity with body mass index (BMI) of 40.0 to 44.9 in adult, unspecified obesity type; White coat syndrome without diagnosis of hypertension; 20 weeks gestation of 02/09/2025 1:03 PM EDT - 02/09/2025 11:59 PM EDT Hospital Encounter [facility] [address] [place] [address] Xiomy Slaughter DO Conceived by in vitro fertilization; HTN in , chronic; Obesity in , antepartum; , unspecified gestational age Discharge Disposition: Home or Self Care 02/09/2025 Travel from Last 3 Months Social History Tobacco Use Types Packs/Day Years [...] on file Sexual Orientation Not on file Last Filed Vital Signs Vital Sign Reading Time Taken Comments Blood Pressure 132/66 04/07/2025 10:43 AM EDT Pulse - - Temperature - - Respiratory Rate - - Oxygen Saturation - - Inhaled Oxygen Concentration - - Weight 120 kg (265 lb) 04/07/2025 10:43 AM EDT Height 167.6 cm (5' 6 ) 02/09/2025 1:26 PM EDT Body Mass Index 42.77 02/09/2025 1:26 PM EDT Plan of Treatment Upcoming Encounters Date Type Department Care Team (Late st Contact Info) Description 04/20/2025 10:00 AM EDT Appointment [facility] LABOR AND DELIVERY PROCEDURES [address] [place] [address] Health Maintenance Due Date Last Done Comments Annual Gynecologic Pelvic an d Breast Exam 2000 HPV VACCINES (1 - 3-dose series) 2014 PAP SMEAR 2020 TDAP/TD VACCINES (2 - Td or Tdap) 04/19/2020 04/19/2010 ANNUAL PHYSICAL 01/14/2025 HEPATITIS C SCREENING 01/14/2025 COVID-19 Vaccine (1 - 2023-2 5 season) 2025 INFLUENZA VACCINE 04/29/2025 05/18/2020, 05/06/2019 RSV Vaccine - Adults (1 - Risk 1-dose series) 05/04/2025 Pneumococcal Vaccine 0-49 Aged Out No longer eligible based on patient's age to complete this topic Procedures Procedure Name Priority Date/Time Associated Diagnosis Comments [facility] Routine 04/07/2025 11:53 AM EDT resulting from in vitro fertilization in second trimester Single umbilical artery affecting management of mother in ortiz , antepartum Clubfoot of left lower extremity [facility] Routine 03/10/2025 11:13 AM EDT [...] diagnosis of hypertension 20 weeks gestation of [facility] Routine 02/09/2025 1:52 PM EDT Conceived by in vitro fertilization HTN in , chronic Obesity in , antepartum , unspecified gestational age from Last 3 Months Results * [facility] (04/07/2025 11:53 AM EDT) Only the most recent of3 resultswithin the time period is included. Anatomical Region Laterality Modality Ultrasound 04/07/2025 10:5 3 AM EDT Narrative 04/07/2025 11:57 AM EDT PAT NAME: JES WALL MED REC#: [id number] DA: 2000 PAT GEND: F PAT TYPE: O EXAM PALLAVI: [id number] REF PHYS XIOMY SLAUGHTER Comparison Studies The [...] EFW (oz) 9 oz EFW by: Hadlock ([id number]) Extended Cav. septi pel. tr 5.7 mm Clothes Separator 6.0 mm Head / Face / Neck [...] Normal Heart / Thorax 3-vessel view: Normal 3-rqltkf-bfqwcdh view: normal Cord insertion: Normal Stomach: Appears [...] and delivery at 34wks. Coding ======= Description: 06993-70 Follow Up Ultrasound Description: 98607-63 Transvaginal Ultrasound OB Knitting Teacher: Mahogany Santana RDMS Physician: Zoila Gandhi MD Electronically signed by: Zoila Gandhi MD at: 11:57 Procedure Note Zoila Gandhi MD - 04/07/2025 PAT NAME: JES WALL MED REC#: [id number] DA: [id number] PAT GEND: F PAT TYPE: O EXAM PALLAVI: [id number] REF PHYS XIOMY SLAUGHTER Comparison Studies The findings of this study are compared to the prior ultrasound studydated 03/10/25 Patient Status Outpatient Indication ======== IVF (donor egg), CHTN, Morbid obesity BMI 43, vasa previa Maternal Assessment Udajob089 cm Height (ft)5 ft Height (in)6 in Zyzbsm435 kg Weight (lb)265 lb BMI43.10 kg/m Method ======= Transabdominal ultrasound examination ========= Ortiz . Number of fetuses: 1 Dating ====== Method of dating:based on stated JACKIE GA by prior [id number] w + 1 d JACKIE by prior assessment:06/29/2025 Ultrasound examination on:04/07/2025 GA by U/S based upon:AC, BPD, Femur, HC GA by U/S28 w + 1 d JACKIE by U/S:06/29/2025 Previous dating:based on stated JACKIE, selected on 02/09/2025 Agreed JACKIE of previous datin06/29/2025 Assigned:based on stated JACKIE, selected on 04/07/2025 Assigned GA28 w + 1 d Assigned JACKIE:06/29/2025 [id number] d Biometry Standard BPD68.5 mm 27w 4d 20% Hadlock OFD94.9 mm 30w 4d 96% Dylon HC262.6 mm 28w 4d 31% Hadlock AC232.5 mm 27w 4d 26% Hadlock Femur54.0 mm 28w 4d 48% Hadlock HC / AC1.13 EFW1,163 g 27w 5d 33% Hadlock EFW (lb)2 lb EFW (oz)9 oz EFW by:Hadlock (EFY-[id number]-FL) Extended Cav. septi pel. tr5.7 mm Vp6.0 mm Head / Face / Neck Cephalic index0.72 2% Nicolaides Extremities / Bony Struc FL / BPD0.79 FL / HC0.21 FL / AC0.23 Other Structures [id number] bpm General Evaluation Cardiac activity present. FHR [...] LVOT view:Normal Heart / Thorax 3-vessel view:Normal 2-dlgybi-xmoytbo view:normal Cord insertion:Normal Stomach:Appears normal Kidneys:Appears normal Bladder:Appears normal Gender:female Wants to know gender:yes Maternal Structures Uterus / Cervix Cervical wwbopj09.0 mm Impression Jes presents for a follow-up [...] frequent testing anddelivery at 34wks. Coding ======= Description:04458-11 Follow Up Ultrasound Description:80951-63 Transvaginal Ultrasound OB Knitting Teacher: Mahogany Santana RDMS Physician: Zoila Gandhi MD Electronically signed by: Zoila Gandhi MD at: 11:57 us Phil Dsouza MD [facility] US ORDERABLES Final Result from Last 3 Months Insurance PPO Care Teams News Content Specialist Relationship Specialty Start Date End Date Lisa Garner MD [address] [place] [address] [place] [address] PCP - General Family Medicine 01/14/25
--- OUTSIDE RECORDS SUMMARY | 2025-04-08 10:42 | XMS_ITS | Encounter Summary ---
[facility] [address] [place] [address] Care Team Providers Care Cargo Station Worker Name Role Phone Lisa Garner MD Primary Care Provider +1- [phone] Encounter Details Date Type Department Care Team (Latest Contact Info) Description 03/10/2025 Travel Social History Tobacco Use Types Packs/Day Years [...] on file documented as of this encounter Plan of Treatment Upcoming Encounters Date Type Department Care Team (Late st Contact Info) Description 04/20/2025 10:00 AM EDT Appointment [facility] LABOR AND DELIVERY PROCEDURES [address] [place] [phone] documented as of this encounter Visit Diagnoses Not on filedocumented in this encounter Care Teams Cargo Station Worker Relationship Specialty Start Date End Date Lisa Garner MD [address] [place] [address] PCP - General Family Medicine 01/14/25 documented as of this encounter
--- OUTSIDE RECORDS SUMMARY | 2025-04-08 10:42 | XMS_ITS | Encounter Summary ---
[facility] [address] [place] [address] Care Team Providers Care Card Punching Machine Operator Name Role Phone Lisa Garner MD Primary Care Provider +1- [phone] Encounter Details Date Type Department Care Team (Latest Contact Info) Description 02/09/2025 Travel Social History Tobacco Use Types Packs/Day [...] Info) Description 04/20/2025 10:00 AM EDT Appointment [facility] LABOR AND DELIVERY PROCEDURES [address] [place] [phone] documented as of this encounter Visit Diagnoses Not on filedocumented in this encounter Care Teams Card Punching Machine Operator Relationship Specialty Start Date End Date Lisa Garner MD [address] [place] [address] PCP - General Family Medicine 01/14/25 documented as of this encounter
--- OUTSIDE RECORDS SUMMARY | 2025-04-08 10:42 | XMS_ITS | Encounter Summary ---
[facility] Address [address] [place] [address] Care Team Providers Care Granulating Machine Operator Name Role Phone Lisa Garner MD Primary Care Provider +1- [phone] Encounter Details Date Type Department Care Team (Latest Contact Info) Description 04/07/2025 Travel Social History Tobacco Use Types Packs/Day [...] Info) Description 04/20/2025 10:00 AM EDT Appointment [facility] LABOR AND DELIVERY PROCEDURES [address] [place] [phone] documented as of this encounter Visit Diagnoses Not on filedocumented in this encounter Care Teams Granulating Machine Operator Relationship Specialty Start Date End Date Lisa Garner MD [address] [place] [address] PCP - General Family Medicine 01/14/25 documented as of this encounter
--- OUTSIDE RECORDS SUMMARY | 2025-04-08 10:42 | XMS_ITS | Clinical Summary ---
Author Organization [facility] Address [address] [facility] [place] [address] Phone Care Team Providers Care Powerhouse Laborer Name Role Phone Lisa Garner MD Primary Care Provider +1- [phone] Allergies No known active allergies Medications medroxyPROGESTER one (PROVERA) 10 mg Oral Tablet Take 10 mg by mouth daily. Active estradioL (VIVELLE) 0.1 mg/24 [address] TD Patch Semiweekly Place 1 Patch onto the skin two times a week. 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 Not on file [...] Additional history exists COVID-19 Vaccine ( season) 2025 Influenza Vaccine (#1) 2025 0, 05/18/2020, 05/06/2019, Additional history exists Hepatitis B [...] an ideal body weight General No Trang Burr RMA Procedures Procedure Name Priority Date/Time Associated Diagnosis Comments [facility] 01/20/2025 7:47 PM EDT from Last 3 Months Results * [facility] (01/20/2025 7:47 PM EDT) 01/20/2025 7:47 PM EDT us Unknown Provider HEMATOLOGY ORDERABLES Final Res ult from Last 3 Months Insurance [employer] PPO Care Teams Powerhouse Laborer Relationship Specialty Start Date End Date Lisa Garner MD [address] [place] [address] PCP - General Family Medicine 09/12/24
--- OUTSIDE RECORDS SUMMARY | 2025-04-08 10:42 | XMS_ITS | Clinical Summary ---
Author Organization [facility] Address [address] [place] [id number] Care Team Providers Care Edge Sander Name Role Phone Pcp, No Primary Care [...] therelease of HIV test results or diagnoses. [id number] Allergies No known active allergies Medications PNV,calcium 14-jyco-idbve acid ( PLUS) 27 mg iron- 1 [...] Colonoscopy Follow Up 1999 Hepatitis C Screening ([employer]) 1999 Immunization: HPV (1 - 3-dose series) 2014 Alcohol Misuse Screening 2017 Depression Screening 2017 HIV Screening 2017 Cervical Cancer Screening/Pap Smear ([employer]) 2020 Immunization: DTaP/Tdap/Td (7 - Td or Tdap) 04/19/2020 04/19/2010, 04/14/2003, 11/05/2000, Additional history exists Diabetes Screening 09/17/2024 09/17/2023 Immunization: COVID-19 ( season) 2025 Immunization: Influenza ([employer]) (#1) 03/30/2025 05/21/2023 Colorectal Cancer Screening ([employer]) 2039 Immunization: Meningococcal ACWY Aged Out 04/19/2010 [...] AM EST Performed at: 01 - [facility] [address] [id number] [address] Principal: Mainor Newton PhD, Phone: [phone] us Irish Parsons MD LAB BLOOD ORDERABLES Final R esult [facility] 1 from Last 3 Months or Most Recently Relevant to Health Maintenance Insurance BL[employer] Care Teams Edge Sander Relationship Specialty Start Date End Date Pcp, No No Address PCP - General 09/17/23
[2025-04-08 11:07] LABS: Hematocrit 36.5 % (37.0-47.0); Hemoglobin 11.9 g/dL (12.2-16.2); Immature Granulocytes % 0.9 %; Mean Corpuscular HGB Conc 32.6 g/dL (31.8-35.4); Mean Corpuscular Hemoglobin 30.2 pg (27.0-31.2); Mean Corpuscular Volume 92.6 fl (81-99); Nucleated Red Blood Cells % 0 %; Platelet Count 243 K/mm3 (142-424); Red Blood Count 3.94 M/mm3 (4.20-5.40); Red Cell Distribution Width-SD 43.4 fL; White Blood Count 9.8 K/mm3 (4.8-10.8)
[2025-04-08] MEDS: RHO(D) IMMUNE GLOBULIN 1,500 UNIT (300MCG) SYRINGE 300 MCG IM (12:29)
[2025-04-08 12:33] VITALS: BP 137/69; PULSE 103; RESP 18; O2SAT 100
[2025-04-08 12:35] LABS: Glucose 1 Hour 137 mg/dL (74-100)
[2025-04-08 14:11] LABS: RPR W/RFX Titers Nonreactive (Nonreactive)
== END 2025-04-08 12:33 | disposition home or self-care (01) ==
LOC: INF 10:38
PROVIDERS: PCP Family Medicine; Visit Provider Obstetrics & Gynecology
DX: O09.819 Supervision of pregnancy resulting from assisted reproductive technology, unspecified trimester (principal); Z3A.00 Weeks of gestation of pregnancy not specified
CPT/HCPCS: 36415; 82947; 85025; 86592; 96372; J2790